=== PATIENT | male | born 1945 | race Caucasian/White ===

== ENCOUNTER 2017-03-25 12:21 | Inpatient (IN) | payer MEDICARE, BC ==
[2017-03-25] VITALS (7 sets, daily range): BP systolic 194–203; BP diastolic 70–87; PULSE 34–51; RESP 20–24; TEMP 98.1; O2SAT 99–100
[~2017-03-25] VITALS: Ht 180.3 cm; Wt 133.5 kg
[2017-03-25] MEDS ORDERED: SODIUM CHLORIDE 0.9% FLUSH 10 ML FLUSH IVF PRN (13:00)
[2017-03-25] MEDS ORDERED: ARTI99.0 EACH EYE (13:05)
[2017-03-25] MEDS ORDERED: NEUR300C PO (13:05)
[2017-03-25] MEDS ORDERED: HYDR25TA5 PO (13:05)
[2017-03-25] MEDS ORDERED: MOBI15TA PO (13:05)
[2017-03-25] MEDS ORDERED: POTA10CA PO (13:05)
[2017-03-25] MEDS ORDERED: ASPI1TAB91 PO (13:05)
[2017-03-25] MEDS ORDERED: ZOCO40TA PO (13:05)
[2017-03-25] MEDS ORDERED: METO5TAB3 PO (13:05)
[2017-03-25] MEDS ORDERED: SLO-500T PO (13:05)
[2017-03-25] MEDS ORDERED: FENO50TA PO (13:05)
[2017-03-25] MEDS ORDERED: MULT-210 PO (13:05)
[2017-03-25] MEDS ORDERED: LACROIN EACH EYE (13:05)
[2017-03-25] MEDS ORDERED: ACTO45TA8 PO (13:05)
[2017-03-25] MEDS ORDERED: ZOLO50TA PO (13:05)
[2017-03-25] MEDS ORDERED: LEVEMIR SQ (13:05)
[2017-03-25] MEDS ORDERED: NOVORP2 SQ (13:05)
[2017-03-25] MEDS ORDERED: NEUR600T PO (13:05)
--- NOTE | 2017-03-25 13:12 | PD ---
HPI Chief Complaint: Cardiac Complaint Time Seen by Provider: 12:33 Travel History International Travel<30 days: No Contact w/Intl Traveler<30days: No Traveled to known affect area: No History of Present Illness HPI This is a 71-year-old gentleman with a history of urinary disease, peripheral vascular disease, IVs mellitus, hyperlipidemia, CHF, presents from the [facility] with altered mental status. Patient was apparently in the [facility] shop at [facility] when he became altered. When paramedics arrived they found his heart rate to be in the low 30s. The patient is a DNR. Paramedics called for medic control and asked if they should initiate pacing. This physician gave him orders to not place and to transport him here to the hospital. When he arrives here he is arousable and able to answer questions. The patient is also legally blind. He states he is in no discomfort. His blood pressure is elevated. I immediately placed a consult with the palliative care team. A conundrum here is that with him being a DNR, should we pacing him or should we place a pacemaker. PFSH Past Medical History Hx Anticoagulant Therapy: Yes Depression: Yes Cardiovascular Problems: Yes (CAD, CHF, PVD) High Cholesterol: Yes Seizures: Yes Tetanus Vaccination: Unknown Social History Alcohol Use: No Tobacco Use: No Substance Use: No Allergies-Medications (Allergen,Severity, Reaction): Coded Allergies: No Known Allergies (Unverified , 03/25/17) Reported Meds & Prescriptions Reported Meds & Active Scripts Active Reported Zoloft (Sertraline HCl) 50 Mg Tab 50 Mg PO DAILY Tricor (Fenofibrate) 145 Mg Tab 145 Mg PO DAILY Take with food. Therapeutic M (Multivit with Calcium,Iron,Min) 1 Each Tablet 1 Tab PO DAILY Slo-Niacin (Niacin) 500 Mg Tab 500 Mg PO HS Zocor (Simvastatin) 40 Mg Tab 40 Mg PO HS Refresh Lacri-Lube Opth Ointment (Artificial Tear Opth Ointment) 1 Oint 1 Applic EACH EYE HS Potassium Chloride ER (Potassium Chloride) 10 Meq Cap 10 Meq PO DAILY Actos (Pioglitazone HCl) 45 Mg Tab 45 Mg PO DAILY Novolin R Inj (Insulin Human Regular) 1,000 Unit/10 Ml Vial 0 SQ TIDAC Sliding Scale: 70-150=0 units, 151-200=5 units, 201-250=10 units, 251-300=15 units, 301-350=20 units, 351-400=25 units, >400=call Novolin R Inj (Insulin Human Regular) 1,000 Unit/10 Ml Vial 6 Units SQ TIDAC Give in addition to sliding scale-Hold if accucheck less than 100 Natural Balance Tears Opth Drops (Artificial Tear Solution Opth Drops) 0.1-0.3% Soln 1 Drop EACH EYE BID Metolazone 5 Mg Tab 5 Mg PO MOTH Take 1 tablet (5mg) daily on Saturday and Mobic (Meloxicam) 15 Mg Tab 15 Mg PO DAILY Levemir Inj (Insulin Detemir) 1,000 unit/ 10 ML Vial 70 Units SQ BID Do not mix with any other Insulin. Hydrochlorothiazide 25 Mg Tab 25 Mg PO DAILY Neurontin (Gabapentin) 300 Mg Cap 300 Mg PO DAILY Neurontin (Gabapentin) 600 Mg Tab 600 Mg PO BID Aspirin Adult Low Strength (Aspirin) 81 Mg Tabdr 81 Mg PO DAILY Review of Systems Except as stated in HPI: all other systems reviewed are Neg Eyes: Positive: Blindness HENT: No: Headaches, Neck Pain Cardiovascular: No: Chest Pain or Discomfort, Irregular Rhythm Respiratory: No: Cough Gastrointestinal: No: Nausea, Vomiting, Abdominal Pain Musculoskeletal: Positive: Weakness, No: Pain Neurologic: Positive: Weakness, Syncope (or syncope), Other (decreased mentation), No: Dizziness, Headache, Change in Mentation Physical Exam Narrative GENERAL: Well-developed well nourished gentleman in no acute distress. SKIN: Focused skin assessment warm/dry. HEAD: Atraumatic. Normocephalic. EYES: Patient has bilateral opacified cataracts.. No scleral icterus. No injection or drainage. ENT: No nasal bleeding or discharge. Mucous membranes pink and moist. NECK: Trachea midline. No JVD. Supple. CARDIOVASCULAR: Bradycardic. No obvious murmur appreciated. It was in the 30s. RESPIRATORY: No accessory muscle use. Clear to auscultation. Breath sounds equal bilaterally. Decreased respiratory effort. GASTROINTESTINAL: Abdomen soft, obese, non-tender, nondistended. MUSCULOSKELETAL: No obvious deformities. No clubbing. No cyanosis. No edema. NEUROLOGICAL: Sleepy but arousable.. No obvious cranial nerve deficits. Motor grossly within normal limits. Able to answer questions and follow commands. Data Data Last Documented VS Vital Signs Date Time Temp Pulse Resp B/P (MAP) Pulse Ox O2 Delivery O2 Flow Rate FiO2 03/25/17 13:40 35 21 203/84 (123) 99 Nasal Cannula 3.00 03/25/17 12:34 98.1 Orders Orders Consult Palliative Care (03/25/17 ) (Hub Use Only)Inp Phy Cons/Ref (03/25/17 ) Basic Metabolic Panel (Bmp) (03/25/17 12:58) Ckmb (Isoenzyme) Profile (03/25/17 12:58) Complete Blood Count With Diff (03/25/17 12:58) Magnesium (Mg) (03/25/17 12:58) Prothrombin Time / Inr (Pt) (03/25/17 12:58) Act Partial Throm Time (Ptt) (03/25/17 12:58) Troponin I (03/25/17 12:58) Chest, Single Ap (03/25/17 12:58) Ecg Monitoring (03/25/17 12:58) Bilateral Bp Monitoring (03/25/17 12:58) Iv Access Insert/Monitor (03/25/17 12:58) Oximetry (03/25/17 12:58) Oxygen Administration (03/25/17 12:58) Sodium Chloride 0.9% Flush (Ns Flush) (03/25/17 13:00) Lipase (03/25/17 12:58) Ct Brain W/O Iv Contrast(Rout) (03/25/17 13:20) Arterial Blood Gas (Abg) (03/25/17 13:20) CKMB (03/25/17 13:04) CKMB% (03/25/17 13:04) Electrocardiogram (03/25/17 12:25) Code Status (03/25/17 14:33) Admit Order (Ed Use Only) (03/25/17 15:04) Labs Laboratory Tests Test 03/25/17 13:04 03/25/17 13:30 03/25/17 14:34 White Blood Count 4.4 TH/MM3 Red Blood Count 4.18 MIL/MM3 Hemoglobin 12.6 GM/DL Hematocrit 38.2 % Mean Corpuscular Volume 91.5 FL Mean Corpuscular Hemoglobin 30.1 PG Mean Corpuscular Hemoglobin Concent 32.9 % Red Cell Distribution Width 14.1 % Platelet Count 177 TH/MM3 Mean Platelet Volume 9.8 FL Neutrophils (%) (Auto) 58.4 % Lymphocytes (%) (Auto) 16.7 % Monocytes (%) (Auto) 22.1 % Eosinophils (%) (Auto) 2.4 % Basophils (%) (Auto) 0.4 % Neutrophils # (Auto) 2.6 TH/MM3 Lymphocytes # (Auto) 0.7 TH/MM3 Monocytes # (Auto) 1.0 TH/MM3 Eosinophils # (Auto) 0.1 TH/MM3 Basophils # (Auto) 0.0 TH/MM3 CBC Comment DIFF FINAL Differential Comment Blood Urea Nitrogen 24 MG/DL Creatinine 1.33 MG/DL Random Glucose 127 MG/DL Calcium Level 7.9 MG/DL Magnesium Level 2.2 MG/DL Sodium Level 131 MEQ/L Potassium Level 3.9 MEQ/L Chloride Level 98 MEQ/L Carbon Dioxide Level 23.7 MEQ/L Anion Gap 9 MEQ/L Estimat Glomerular Filtration Rate 53 ML/MIN Total Creatine Kinase 199 U/L Creatine Kinase MB 2.9 NG/ML Troponin I 0.13 NG/ML Lipase 69 U/L Blood Gas Puncture Site LT RADIAL Blood Gas Patient Temperature 98.6 Blood Gas HCO3 25 mmol/L Blood Gas Base Excess 1.0 mmol/L Blood Gas Oxygen Saturation 96 % Arterial Blood pH 7.43 Arterial Blood Partial Pressure CO2 39 mmHg Arterial Blood Partial Pressure O2 96 mmHG Arterial Blood Oxygen Content 16.6 Vol % Arterial Blood Carboxyhemoglobin 1.4 % Arterial Blood Methemoglobin 0.5 % Blood Gas Hemoglobin 12.2 G/DL Oxygen Delivery Device NASAL CANNULA Blood Gas Liter Flow 3 L/M [facility] Medical Decision Making Medical Screen Exam Complete: Yes Emergency Medical Condition: Yes Differential Diagnosis Third-degree heart block versus sick sinus syndrome versus acute CO versus metabolic arrangement Narrative Course 71-year-old male with history of legal blindness, diabetes medicine, hypertension, hyperlipidemia, peripheral rashes disease, who presents from the [facility] after having a episode of altered sensorium want to give shot. The patient had bradycardia noted on scene. Patient complains of no chest pain. He is lethargic however able to answer questions and follow commands. EKG shows what appears to be a second degree type II block versus sick sinus syndrome. Patient also has elevated troponin at 0.12. There is a call out to the on-call water project engineer. A consult has been placed for him as well. I spoke with the patient's power of family law attorney and she wishes for everything to be done at this time. The patient is having no chest pain. Patient does have renal sufficiency. Patient's blood pressure was elevated when he arrived. Case was discussed with Dr. Finney, on-call stuntman, who admit the patient to the intensive care unit. Critical Care Narrative Aggregate critical care time was 35 minutes. Time to perform other separately billable procedures was not included in the critical care time. My time did not include minutes spent treating any other patients simultaneously or on activities that did not directly contribute to the patient's treatment. The services I provided to this patient were to treat and/or prevent clinically significant deterioration that could result in: I provided critical care services requiring my management, as noted below: Chart data review, documentation time, medication orders and management, vital sign assessments/reviewing monitor data, ordering and reviewing lab tests, ordering and interpreting/reviewing x-rays and diagnostic studies, care of the patient and discussion of the patient with the admitting physicians. Diagnosis Primary Impression: Symptomatic bradycardia Additional Impressions: Heart block AV second degree Elevated troponin Acute kidney injury Hyperlipidemia Legally blind Admitting Information Admitting Physician Requests: Admit Neo Ching MD Mar 25, 2017 13:12
[2017-03-25 13:24] LABS: AUTOMATED NEUTROPHIL # 2.6 TH/MM3 (1.8-7.7); BASOPHIL % 0.4 % (0.0-2.0); EOSINOPHIL # 0.1 TH/MM3 (0-0.4); EOSINOPHIL % 2.4 % (0.0-4.0); HEMATOCRIT 38.2 % (39.0-51.0); HEMO FLAGS DIFF FINAL; LYMPH % 16.7 % (9.0-44.0); LYMPHOCYTE # 0.7 TH/MM3 (1.0-4.8); MEAN CELL VOLUME 91.5 FL (80.0-100.0); MEAN CORPUSCULAR HEMOGLOBIN 30.1 PG (27.0-34.0); MEAN CORPUSCULAR HGB CONC 32.9 % (32.0-36.0); MONO % 22.1 % (0.0-8.0); NEUT % 58.4 % (16.0-70.0); PLATELET COUNT 177 TH/MM3 (150-450); RED BLOOD COUNT 4.18 MIL/MM3 (4.50-5.90); RED CELL DISTRIBUTION WIDTH 14.1 % (11.6-17.2); WHITE BLOOD COUNT 4.4 TH/MM3 (4.0-11.0)
--- NOTE | 2017-03-25 13:25 | RADRPT ---
EXAM DATE/TIME: 03/25/2017 13:02 [facility] COMPARISON: No previous studies available for comparison. INDICATIONS : Patient has altered mental status with bradycardia. MEDICAL HISTORY : None. SURGICAL HISTORY : None. ENCOUNTER: Initial ACUITY: 1 day PAIN SCORE: Non-responsive. LOCATION: Bilateral upper chest FINDINGS: The lungs are clear. The heart is minimally enlarged. The pulmonary vascularity is normal. There is n o evidence for infiltrate or failure. The portion of the bony skeleton visualized is unremarkable. CONCLUSION: Compensated cardiomegaly otherwise negative Board Certified Radiologist. This report was verified electronically.
[2017-03-25 13:40] LABS: BLOOD GAS CARBOXYHEMOGLOBIN 1.4 % (0-4); BLOOD GAS HCO3 25 mmol/L (22-26); BLOOD GAS METHEMOGLOBIN 0.5 % (0-2); BLOOD GAS O2 HGB SATURATION 96 % (90-100); BLOOD GAS OXYGEN CONTENT 16.6 Vol % (12.0-20.0); BLOOD GAS PCO2 39 mmHg (38-42); BLOOD GAS PO2 96 mmHG (61-120); BLOOD GAS TOTAL HGB 12.2 G/DL (12.0-16.0); CRITICAL VALUE NO; DRAW SITE LT RADIAL; LITER FLOW 3 L/M; NUMBER OF ARTERIAL PUNCTURES 1; OXYGEN DEVICE NASAL CANNULA; STAT YES; TEMP CORR TO 98.6; ULNAR PULSE PRESENT
[2017-03-25 13:42] LABS: ANION GAP 9 MEQ/L (5-15); BICARBONATE 23.7 MEQ/L (21.0-32.0); BLOOD UREA NITROGEN 24 MG/DL (7-18); CHLORIDE 98 MEQ/L (98-107); GLOMERULAR FILTRATION RATE 53 ML/MIN (>89); MAGNESIUM 2.2 MG/DL (1.5-2.5); POTASSIUM 3.9 MEQ/L (3.5-5.1); SODIUM (NA) 131 MEQ/L (136-145)
[2017-03-25 13:45] LABS: CREATINE KINASE 199 U/L (39-308)
[2017-03-25 14:06] LABS: CKMB 2.9 NG/ML (0.5-3.6)
--- NOTE | 2017-03-25 14:53 | PD.CONS ---
Consult Service Palliative Care Consult Requested By Dr. Ching Primary Care Physician Unknown Reason for Consultation a. To assist with evaluation and management of symptoms including: lethargy b. To assist medical decision maker(s) with: better understanding of current medical conditions; weighing benefits/burdens of medical treatment options; making medical treatment decisions. HPI History of Present Illness Patient is a 71-year-old with past medical history significant for peripheral vascular disease, diabetes, hyperlipidemia, CHF. Patient presented to the group home with altered mental status, was apparently in the gift shop when he became altered. Paramedics found patient to be bradycardic. Patient has completed a sign DNR in 2008. Physician in the nursing facility gave orders to transfer patient to the hospital. Patient on arrival to the ER was arousable and answers some questions, but overall lethargic. Vitals: Temperature 98.1, pulse is 50 1/2/35, respirations 24, blood pressure is 194/70, pulse ox is 100% on 3 L WBC 4.4, hemoglobin is 12.6, hematocrit is 30.2, platelet is 177 Sodium is 131, potassium 3.9, chloride is 98, bicarbonate 23.7, BUNs 24, creatinine is 1.33 PT, INR PTT pending Chest x-ray shows compensated cardiomegaly otherwise negative EKG shows bradycardia. Palliative care was consulted to review goals of care, as patient is has a written DNR. ER physician subsequently was able to reach family member, patient's sister, and review current clinical condition with patient. She endorsed she wouldn't want a cardiology consultation, and evaluation for possible pacing. I went to evaluate patient, who is overall lethargic. On my visit patient fought he was still in the nursing facility. She does deny any pain or any other discomfort. Given lethargy where patient would sometime fall asleep was asking questions, goals of care cannot be reviewed with patient. I spoke with Shaila Hughes [phone] (cell) [phone] (work) sister, and she state she is the POA. Explain to her what palliative care is. She seem to have a good understanding of his situation and the dilemma of DNR and bradycardic. She endorse that her father went through a similar situation and really "all he needed a pace maker." She ask for cardiology consultation and evaluation for pacemaker. This was consistent with what she told the ER physician. Spoke more in detail of the DNR that the patient signed. She state she was not aware of it, and feel possibly he did not know what he was signing. However, she does endorse, intubation would be to aggressive in care for patient. Review risk of decompensation and in that event what should be done. She endorses this: == No intubation, but amenable to bipap. She would want cpr/ shock/ acls drugs. == She would like cardiology consultation. == goals of care short of intubation, but want bipap if decompensates respiratory mcelroy.. Function/Cognitive Trajectory Pt legally blind, per sister able to do some activities of daily living. She denies pt ever went in and out of the hospital. Review of Systems ROS Limitations: Clinical Condition Constitutional: COMPLAINS OF: Fatigue Eyes: COMPLAINS OF: Vision loss (> 15 years ago) Cardiovascular: COMPLAINS OF: Dyspnea on Exertion Psychiatric: COMPLAINS OF: Confusion Past Family Social History Coded Allergies: No Known Allergies (Unverified , 03/25/17) Past Medical History peripheral vascular disease, IVs mellitus, hyperlipidemia, CHF, blind (per sister from agent orange exposure) Past Surgical History unable to elicit Reported Medications Zoloft (Sertraline HCl) 50 Mg Tab 50 Mg PO DAILY Tricor (Fenofibrate) 145 Mg Tab 145 Mg PO DAILY Take with food. Therapeutic M (Multivit with Calcium,Iron,Min) 1 Each Tablet 1 Tab PO DAILY Slo-Niacin (Niacin) 500 Mg Tab 500 Mg PO HS Zocor (Simvastatin) 40 Mg Tab 40 Mg PO HS Refresh Lacri-Lube Opth Ointment (Artificial Tear Opth Ointment) 1 Oint 1 Applic EACH EYE HS Potassium Chloride ER (Potassium Chloride) 10 Meq Cap 10 Meq PO DAILY Actos (Pioglitazone HCl) 45 Mg Tab 45 Mg PO DAILY Novolin R Inj (Insulin Human Regular) 1,000 Unit/10 Ml Vial 0 SQ TIDAC Sliding Scale: 70-150=0 units, 151-200=5 units, 201-250=10 units, 251-300=15 units, 301-350=20 units, 351-400=25 units, >400=call Novolin R Inj (Insulin Human Regular) 1,000 Unit/10 Ml Vial 6 Units SQ TIDAC Give in addition to sliding scale-Hold if accucheck less than 100 Natural Balance Tears Opth Drops (Artificial Tear Solution Opth Drops) 0.1-0.3% Soln 1 Drop EACH EYE BID Metolazone 5 Mg Tab 5 Mg PO MOTH Take 1 tablet (5mg) daily on Saturday and Mobic (Meloxicam) 15 Mg Tab 15 Mg PO DAILY Levemir Inj (Insulin Detemir) 1,000 unit/ 10 ML Vial 70 Units SQ BID Do not mix with any other Insulin. Hydrochlorothiazide 25 Mg Tab 25 Mg PO DAILY Neurontin (Gabapentin) 300 Mg Cap 300 Mg PO DAILY Neurontin (Gabapentin) 600 Mg Tab 600 Mg PO BID Aspirin Adult Low Strength (Aspirin) 81 Mg Tabdr 81 Mg PO DAILY Current Medications Medications (Trade) Dose Ordered Sig/Jayla Route Start Time Stop Time Status Last Admin (NS Flush) 2 ml UNSCH PRN IVF 03/25/17 13:00 Family History Mother had Alzheimer's Father had abram cardia and stroke. Substance Use Tobacco:no Alcohol:unable to elicit Prescription med abuse:unable to elicit Illicits:unable to elicit Psychosocial History [place] Blind for many years >15, lives in nursing facility. Not , no children. Has a sister Shaila Hughes (POA) and a brother Juan. Pt's parents Spiritual/Cultural Factors unable to elicit. Durable Power of Supervisor Plastering: Completed, but not made available Family/friends goals: Review risk of decompensation and in that event what should be done. She endorses this: == No intubation, but amenable to bipap. She would want cpr/ shock/ acls drugs. == She would like cardiology consultation. == goals of care short of intubation, but want bipap if decompensates. Physical Exam Vital Signs Date Time Temp Pulse Resp B/P (MAP) Pulse Ox O2 Delivery O2 Flow Rate FiO2 03/25/17 13:40 35 21 203/84 (123) 99 Nasal Cannula 3.00 03/25/17 12:34 54 24 100 Room Air 3.00 03/25/17 12:34 98.1 37 20 196/87 (123) 100 Nasal Cannula 3.00 03/25/17 12:30 100 Nasal Cannula 3.00 03/25/17 12:30 24 100 Nasal Cannula 3.00 03/25/17 12:24 98.1 51 24 194/70 (111) 100 Exam CONSTITUTIONAL/GENERAL: This is an adequately nourished patient, in no apparent distress. TUBES/LINES/DRAINS: SKIN: No jaundice, rashes, or lesions. Ecchymoses on upper extremities. No wounds seen anteriorly. Skin temperature appropriate. Not diaphoretic. HEAD: Atraumatic. Normocephalic. EYES: Pupils equal and round and reactive. Extraocular motions intact. No scleral icterus. No injection or drainage. Fundi not examined. ENT: Hearing grossly normal. Nose without bleeding or purulent drainage. Throat without visible erythema, exudates, masses, or lesions. NECK: Trachea midline. Supple, nontender. No palpable thyroid enlargement or nodularity. CARDIOVASCULAR: Regular rate and rhythm without murmurs, gallops, or rubs. No JVD. Peripheral pulses symmetric. RESPIRATORY/CHEST: Symmetric, unlabored respirations. Clear to auscultation. Breath sounds equal bilaterally. No wheezes, rales, or rhonchi. GASTROINTESTINAL: Abdomen soft, non-tender, nondistended. No hepato-splenomegaly , or palpable masses. No guarding. Bowel sounds present. GENITOURINARY: Without palpable bladder distension. Chicas catheter in place. MUSCULOSKELETAL: Extremities without clubbing, cyanosis, or edema. No joint tenderness or effusion noted. No calf tenderness. No mottling or clubbing. LYMPHATICS: No palpable cervical or supraclavicular adenopathy. NEUROLOGICAL: Awake and alert. Motor and sensory grossly within normal limits. Follows commands. Cognitively sharp. Moves all extremities. PSYCHIATRIC: No obvious anxiety/depression. no apparent hallucinations or other psychotic thought process. Diagnostic Tests Laboratory Laboratory Tests Test 03/25/17 13:04 03/25/17 13:30 White Blood Count 4.4 TH/MM3 (4.0-11.0) Red Blood Count 4.18 MIL/MM3 (4.50-5.90) Hemoglobin 12.6 GM/DL (13.0-17.0) Hematocrit 38.2 % (39.0-51.0) Mean Corpuscular Volume 91.5 FL (80.0-100.0) Mean Corpuscular Hemoglobin 30.1 PG (27.0-34.0) Mean Corpuscular Hemoglobin Concent 32.9 % (32.0-36.0) Red Cell Distribution Width 14.1 % (11.6-17.2) Platelet Count 177 TH/MM3 (150-450) Mean Platelet Volume 9.8 FL (7.0-11.0) Neutrophils (%) (Auto) 58.4 % (16.0-70.0) Lymphocytes (%) (Auto) 16.7 % (9.0-44.0) Monocytes (%) (Auto) 22.1 % (0.0-8.0) Eosinophils (%) (Auto) 2.4 % (0.0-4.0) Basophils (%) (Auto) 0.4 % (0.0-2.0) Neutrophils # (Auto) 2.6 TH/MM3 (1.8-7.7) Lymphocytes # (Auto) 0.7 TH/MM3 (1.0-4.8) Monocytes # (Auto) 1.0 TH/MM3 (0-0.9) Eosinophils # (Auto) 0.1 TH/MM3 (0-0.4) Basophils # (Auto) 0.0 TH/MM3 (0-0.2) CBC Comment DIFF FINAL Differential Comment Blood Urea Nitrogen 24 MG/DL (7-18) Creatinine 1.33 MG/DL (0.60-1.30) Random Glucose 127 MG/DL (74-106) Calcium Level 7.9 MG/DL (8.5-10.1) Magnesium Level 2.2 MG/DL (1.5-2.5) Sodium Level 131 MEQ/L (136-145) Potassium Level 3.9 MEQ/L (3.5-5.1) Chloride Level 98 MEQ/L (98-107) Carbon Dioxide Level 23.7 MEQ/L (21.0-32.0) Anion Gap 9 MEQ/L (5-15) Estimat Glomerular Filtration Rate 53 ML/MIN (>89) Total Creatine Kinase 199 U/L (39-308) Creatine Kinase MB 2.9 NG/ML (0.5-3.6) Troponin I 0.13 NG/ML (0.02-0.05) Lipase 69 U/L (73-393) Blood Gas Puncture Site LT RADIAL Blood Gas Patient Temperature 98.6 Blood Gas HCO3 25 mmol/L (22-26) Blood Gas Base Excess 1.0 mmol/L (-2-2) Blood Gas Oxygen Saturation 96 % (90-100) Arterial Blood pH 7.43 (7.380-7.420) Arterial Blood Partial Pressure CO2 39 mmHg (38-42) Arterial Blood Partial Pressure O2 96 mmHG (61-120) Arterial Blood Oxygen Content 16.6 Vol % (12.0-20.0) Arterial Blood Carboxyhemoglobin 1.4 % (0-4) Arterial Blood Methemoglobin 0.5 % (0-2) Blood Gas Hemoglobin 12.2 G/DL (12.0-16.0) Oxygen Delivery Device NASAL CANNULA Blood Gas Liter Flow 3 L/M Result Diagram: 03/25/17 1304 03/25/17 1304 Imaging Last Impressions Chest X-Ray 03/25/17 1258 Signed Impressions: Service Date/Time: Saturday, March 25, 2017 13:02 - CONCLUSION: Compensated cardiomegaly otherwise negative Board Certified Radiologist. This report was verified electronically. Patient/Family Conference Present at Family Conference: Shaila Hughes Family Conference Time (mins): 36 Family Conference Location: Telephone Issues Discussed: * Palliative care role, purpose, approach * Additional medical, psychosocial, and spiritual history * Patients general health, functional status, and cognitive changes in the months leading up to the current hospitalization * Patient/family understanding of the current medical problems * Patient/family understanding of prognosis * Patients goals of care as best understood from advance directives and/or conversations and/or values * Current medical treatment options and benefits/burdens of those options * Likely scenarios comparing ongoing aggressive care with a transition to comfort measures only * Questions answered to the best of my ability * Palliative care contact information provided Assessment and Plan Disease Oriented Problem List: (1) Bradycardia (2) Lethargy (3) CHF (congestive heart failure) (4) Diabetes (5) Hyperlipidemia (6) PVD (peripheral vascular disease) Symptom Scale: (1) Lethargy 0-10 Scale: Unable to quantify Pertinent Non-Medical Issues Psychosocial: Spiritual: Legal: Ethical issues impacting care: Important Contacts Shaila Hughes [phone] (cell). and work [phone] ( sister, and reported POA) Prognosis 71 year old with bradycardia, pending further workup. Prognosis is guarded, and at risk of sudden decompensation, setback, and decline. Code Status: Alternative Code (no intubation. Yes to compression/shock/acls/ bipap) Plan == Capacity- confused, lethargic on my visit. Does not have capacity to make medical decisions. == decision maker. Pt not , no kids, parents . Per [place] statutes the closest relative, and also reported POA is Shaila Hughes (pt's sister) . == Goals. She feels father went through something similar, and wants cardiology consultation and continue aggressive measures short of endotracheal intubation. Spoke more in detail with Sister (POA)of the DNR patient signed. She state she was not aware of it he signed it, and feel possibly he did not know what he was signing. However, she does endorse, intubation would be to aggressive in care for patient. Review risk of decompensation and in that event what should be done. She endorses this: == No intubation, but amenable to bipap. She would want compressions/ shock/ acls drugs/ bipap == She would like cardiology consultation and aggressive care. == goals of care, aggressive short of intubation, but want bipap if decompensates. == pain- pt denies pain. == lethargy- bradycardic, likely cardiac in etiology. No new med rec. == Palliative Care will continue to follow. Thank you for the opportunity to participate in the care of Mr. Fragoso. Attestation To help prompt me to consider important information that might be impacting today's encounter and assessment, information from prior notes written by myself or my colleagues may have been "brought forward" into today's note. My signature on this note, however, is an attestation that I personally performed the exam, history, and/or decision-making noted today, and, unless otherwise indicated, the interactions with patient, family, and staff as well as the review of records all occurred today. I also attest that the listed assessment and stated plan reflect my best clinical judgment today based on the combination of historical information, prior notes, and today's exam/ interactions. When time spent is documented, it refers only to time spent today by the signer, or if indicated, combined time spent today by collaborating physician/nurse practitioner. Hugh Paulino MD Mar 25, 2017 14:53
--- NOTE | 2017-03-25 15:54 | HHI.HP ---
[facility] Service Critical Care Medicine Primary Care Physician Unknown Admission Diagnosis symptomatic bradycardia, elevated troponin, acute kidney injury, leg Diagnosis: (1) Heart block AV second degree Diagnosis: Principal (2) Diabetes mellitus Diagnosis: Principal (3) Elevated troponin Diagnosis: Principal (4) Legally blind Diagnosis: Principal (5) Acute kidney injury Diagnosis: Principal (6) Symptomatic bradycardia Diagnosis: Principal (7) Peripheral vascular disease Diagnosis: Principal (8) Hyponatremia Diagnosis: Secondary (9) Hyperlipidemia Diagnosis: Secondary (10) PVD (peripheral vascular disease) Diagnosis: Secondary (11) CHF (congestive heart failure) Diagnosis: Secondary (12) Lethargy Diagnosis: Principal Chief Complaint: Syncopal episode at intermediate. Travel History International Travel<30 Days: No Contact w/Intl Traveler <30 Da: No Traveled to Known Affected Are: No History of Present Illness This is a 71-year-old male. Date of admission 03/25/2017. Asked medical history includes legal blindness, diabetes with peripheral neuropathy, chronic kidney disease stage III A, coronary artery disease, congestive heart failure unknown etiology, peripheral vascular disease, dyslipidemia, osteoporosis, degenerative disc disease constipation elevated BMI greater than 40 and FARNSWORTH. Patient presents to [facility] emergency department today after being seen as nursing facility with low heart rate and confused. Patient was a DNR and initially patient was not transvenously paced due to hypertension/ well perfused. Patient received 0.5 mill grams atropine in route without improvement in heart rate. Workup included EKG which revealed high degree AV block type II Mobitz and higher. EKG revealed rates around 40. Right bundle-branch block. Left anterior fascicular block. LVH. Troponin was 0.13. Potassium 3.9. Magnesium 2.2. Normocytic anemia.. Patient was evaluated by Dr. Santos who did not recommend pacemaker this time. Patient would benefit the ICU for observation as his systolic blood pressures currently in the 180s to 200s and he is mentating appropriately at this time. He will evaluate for pacemaker heart block persists. Discussed with Shaila Hughes, healthcare proxy is amenable to pacemaker placement if indicated. Review of Systems Constitutional: COMPLAINS OF: Fatigue, Weight gain, DENIES: Fever, Weight loss Endocrine: DENIES: Polydipsia, Polyuria Eyes: COMPLAINS OF: Blurred vision, Vision loss, Double Vision Ears, nose, mouth, throat: DENIES: Tinnitus Respiratory: DENIES: Apneas, Cough, Snoring Cardiovascular: DENIES: Chest pain Gastrointestinal: COMPLAINS OF: Constipation, DENIES: Abdominal pain Genitourinary: COMPLAINS OF: Urinary frequency, Nocturia, DENIES: Hematuria, Dysuria Musculoskeletal: COMPLAINS OF: Joint pain, DENIES: Back pain, Neck pain Integumentary: DENIES: Rash Hematologic/lymphatic: DENIES: Bruising Immunologic/allergic: DENIES: Eczema Neurologic: DENIES: Abnormal gait, Headache Psychiatric: COMPLAINS OF: Confusion, DENIES: Anxiety, Depression Past Family Social History Allergies: Coded Allergies: No Known Allergies (Unverified , 03/25/17) Past Medical History Depression Diabetic neuropathy DDD Coronary artery disease Congestive heart failure unknown etiology Peripheral vascular disease Dyslipidemia Diabetes mellitus Osteoporosis Constipation Chronic kidney disease stage IIIa Past Surgical History None Reported Medications Zoloft (Sertraline HCl) 50 Mg Tab 50 Mg PO DAILY Tricor (Fenofibrate) 145 Mg Tab 145 Mg PO DAILY Take with food. Therapeutic M (Multivit with Calcium,Iron,Min) 1 Each Tablet 1 Tab PO DAILY Slo-Niacin (Niacin) 500 Mg Tab 500 Mg PO HS Zocor (Simvastatin) 40 Mg Tab 40 Mg PO HS Refresh Lacri-Lube Opth Ointment (Artificial Tear Opth Ointment) 1 Oint 1 Applic EACH EYE HS Potassium Chloride ER (Potassium Chloride) 10 Meq Cap 10 Meq PO DAILY Actos (Pioglitazone HCl) 45 Mg Tab 45 Mg PO DAILY Novolin R Inj (Insulin Human Regular) 1,000 Unit/10 Ml Vial 0 SQ TIDAC Sliding Scale: 70-150=0 units, 151-200=5 units, 201-250=10 units, 251-300=15 units, 301-350=20 units, 351-400=25 units, >400=call MD Novolin R Inj (Insulin Human Regular) 1,000 Unit/10 Ml Vial 6 Units SQ TIDAC Give in addition to sliding scale-Hold if accucheck less than 100 Natural Balance Tears Opth Drops (Artificial Tear Solution Opth Drops) 0.1-0.3% Soln 1 Drop EACH EYE BID Metolazone 5 Mg Tab 5 Mg PO MOTH Take 1 tablet (5mg) daily on Saturday and Mobic (Meloxicam) 15 Mg Tab 15 Mg PO DAILY Levemir Inj (Insulin Detemir) 1,000 unit/ 10 ML Vial 70 Units SQ BID Do not mix with any other Insulin. Hydrochlorothiazide 25 Mg Tab 25 Mg PO DAILY Neurontin (Gabapentin) 300 Mg Cap 300 Mg PO DAILY Neurontin (Gabapentin) 600 Mg Tab 600 Mg PO BID Aspirin Adult Low Strength (Aspirin) 81 Mg Tabdr 81 Mg PO DAILY Active Ordered Medications Reviewed in EMR Family History Father's history diabetes/CVA and complete heart block. Social History No history of tobacco, alcohol or IV drug use Physical Exam Vital Signs Vital Signs Date Time Temp Pulse Resp B/P (MAP) Pulse Ox O2 Delivery O2 Flow Rate FiO2 03/25/17 13:40 35 21 203/84 (123) 99 Nasal Cannula 3.00 03/25/17 12:34 54 24 100 Room Air 3.00 03/25/17 12:34 98.1 37 20 196/87 (123) 100 Nasal Cannula 3.00 03/25/17 12:30 100 Nasal Cannula 3.00 03/25/17 12:30 24 100 Nasal Cannula 3.00 03/25/17 12:24 98.1 51 24 194/70 (111) 100 Physical Exam GENERAL: 71-year-old male, resting in bed in no acute distress SKIN: Warm and dry. Well perfused. No rash. HEAD: Atraumatic. Normocephalic. EYES: Pupils equal and round about 3 Negrete's bilaterally and minimally reactive. No scleral icterus. No injection or drainage. ENT: No nasal bleeding or discharge. Mucous membranes pink and moist. NECK: Trachea midline. No JVD. CARDIOVASCULAR: Bradycardia, IR. S1, S2. No S4. Without murmur. RESPIRATORY: Clear to auscultation. Breath sounds equal bilaterally. GASTROINTESTINAL: Abdomen soft, non-tender, obese. Hypoactive bowel sounds are appreciated. Hepatic and splenic margins not palpable. MUSCULOSKELETAL: Extremities trace to 1+ peripheral nonpitting edema. No obvious deformities. NEUROLOGICAL: Awake and alert to person only currently.. No obvious cranial nerve deficits. Motor grossly within normal limits. Five out of 5 muscle strength in the arms and legs. Normal speech. Laboratory Laboratory Tests Test 03/25/17 13:04 03/25/17 13:30 03/25/17 15:25 White Blood Count 4.4 Red Blood Count 4.18 Hemoglobin 12.6 Hematocrit 38.2 Mean Corpuscular Volume 91.5 Mean Corpuscular Hemoglobin 30.1 Mean Corpuscular Hemoglobin Concent 32.9 Red Cell Distribution Width 14.1 Platelet Count 177 Mean Platelet Volume 9.8 Neutrophils (%) (Auto) 58.4 Lymphocytes (%) (Auto) 16.7 Monocytes (%) (Auto) 22.1 Eosinophils (%) (Auto) 2.4 Basophils (%) (Auto) 0.4 Neutrophils # (Auto) 2.6 Lymphocytes # (Auto) 0.7 Monocytes # (Auto) 1.0 Eosinophils # (Auto) 0.1 Basophils # (Auto) 0.0 CBC Comment DIFF FINAL Differential Comment Blood Urea Nitrogen 24 Creatinine 1.33 Random Glucose 127 Calcium Level 7.9 Magnesium Level 2.2 Sodium Level 131 Potassium Level 3.9 Chloride Level 98 Carbon Dioxide Level 23.7 Anion Gap 9 Estimat Glomerular Filtration Rate 53 Total Creatine Kinase 199 Creatine Kinase MB 2.9 Troponin I 0.13 Lipase 69 Blood Gas Puncture Site LT RADIAL Blood Gas Patient Temperature 98.6 Blood Gas HCO3 25 Blood Gas Base Excess 1.0 Blood Gas Oxygen Saturation 96 Arterial Blood pH 7.43 Arterial Blood Partial Pressure CO2 39 Arterial Blood Partial Pressure O2 96 Arterial Blood Oxygen Content 16.6 Arterial Blood Carboxyhemoglobin 1.4 Arterial Blood Methemoglobin 0.5 Blood Gas Hemoglobin 12.2 Oxygen Delivery Device NASAL CANNULA Blood Gas Liter Flow 3 Result Diagram: 03/25/17 1304 03/25/17 1304 Imaging Last Impressions Chest X-Ray 03/25/17 1258 Signed Impressions: Service Date/Time: Saturday, March 25, 2017 13:02 - CONCLUSION: Compensated cardiomegaly otherwise negative Board Certified Radiologist. This report was verified electronically. MD Christine VTE Risk Assessment Emmett VTE Risk Assessment: No/Low Risk (score <= 1) VTE Pharm Contraindication: Juliorini Risk Assessment Model Point Value = 1 Point Value = 2 Point Value = 3 Point Value = 5 Age 41-60 Minor surgery BMI > 25 kg/m2 Swollen legs Varicose veins or History of unexplained or recurrent spontaneous Oral contraceptives or hormone replacement Sepsis (< 1 month) Serious lung disease, including pneumonia (< 1 month) Abnormal pulmonary function Acute myocardial infarction Congestive heart failure (< 1 month) History of inflammatory bowel disease Medical patient at bed rest Age 61-74 Arthroscopic surgery Major open surgery (> 45 min) Laparoscopic surgery (> 45 min) Malignancy Confined to bed (> 72 hours) Immobilizing plaster cast Central venous access Age >= 75 History of VTE Family history of VTE Factor V Leiden Prothrombin [id number] Lupus anticoagulant Anticardiolipin antibodies Elevated serum homocysteine Heparin-induced thrombocytopenia Other congenital or acquired thrombophilia Stroke (< 1 month) Elective arthroplasty Hip, pelvis, or leg fracture Acute spinal cord injury (< 1 month) Prophylaxis Regimen Total Risk Factor Score Risk Level Prophylaxis Regimen 0-1 Low Early ambulation 2 Moderate Order ONE of the following: *Sequential Compression Device (SCD) *Heparin 5000 units SQ BID 3-4 Higher Order ONE of the following medications: *Heparin 5000 units SQ TID *Enoxaparin/Lovenox 40 mg SQ daily (WT < 150 kg, CrCl > 30 mL/min) *Enoxaparin/Lovenox 30 mg SQ daily (WT < 150 kg, CrCl > 10-29 mL/min) *Enoxaparin/Lovenox 30 mg SQ BID (WT < 150 kg, CrCl > 30 mL/min) AND/OR *Sequential Compression Device (SCD) 5 or more Highest Order ONE of the following medications: *Heparin 5000 units SQ TID (Preferred with Epidurals) *Enoxaparin/Lovenox 40 mg SQ daily (WT < 150 kg, CrCl > 30 mL/min) *Enoxaparin/Lovenox 30 mg SQ daily (WT < 150 kg, CrCl > 10-29 mL/min) *Enoxaparin/Lovenox 30 mg SQ BID (WT < 150 kg, CrCl > 30 mL/min) AND *Sequential Compression Device (SCD) Assessment and Plan Assessment and Plan Neuro/Psych: Depression NOS Diabetic neuropathy Acetaminophen 650 mg by mouth every 4 hours when necessary fever/pain 1-5 Hydrocodone/acetaminophen 5/325 one tablet every 4 hours. Pain 6-10 Holding gabapentin 60 mg by mouth twice a day and 3 mg at night in light of heart block Holding sertraline 50 mg by mouth daily. Resume when clinically indicated CT brain currently pending CV: Elevated troponin Congestive heart failure NOS Coronary artery disease Dyslipidemia Peripheral vascular disease Evaluated by Dr. Santos cardiology in ED. Likely high degree AV block. Second -degree type 2-1 versus higher. Heart rate currently in the 30s. Systolic blood pressure around 200. No indication for pacemaker at this time. Monitoring in intensive care unit. Temporary transvenous pacer pads placed on patient temporarily As needed hydralazine/Nitropaste for hypertension Continue simvastatin 40 mg by mouth daily for dyslipidemia Continue fenofibrate 145 mg daily and niacin 500 mg daily for dyslipidemia Holding hydrochlorothiazide 25 mg daily and metolazone 5 mg Saturday/. Resume when clinically indicated Continue aspirin 81 mg by mouth daily. 2-D echocardiogram ordered. Cycle troponins. Resp: Nasal cannula to maintain saturations greater than equal to 92% Incentive spirometry while awake Chest x-ray revealed cardiomegaly without signs of overt heart failure. GI: Constipation ADA diet. Nothing by mouth tonight Pantoprazole for GI prophylaxis Maria G-Colace for bowel regimen : FARNSWORTH by history Chicas catheter if indicated for accurate I's and O's in a critically ill patient Endo: Diabetes mellitus Currently on insulin detemir 10 units subcutaneous twice a day and sliding scale insulin/high regimen with before meals/at bedtime 0300 Accu-Cheks Hemoglobin A1c 7.2 2015 Patient is on insulin detemir 70 units subcutaneous [facility] a [facility] Novulin R 6 units 3 times a day with sliding scale with meals along with pioglitazone 45 mg by mouth daily for diabetes Renal: Chronic kidney disease stage IIIa GFR around 50. Monitor urine output Accurate I's and O's Heme: Normocytic anemia Monitor CBC daily. Follow trends. No indication for transfusion of blood products at this time. ID: Monitor for infection. FEN: Hyponatremia Replace electrolyte as clinically indicated. Follow-up sodium in AM. MSK: DDD Osteoporosis BMI greater than 40 Holding meloxicam 15 mill grams by mouth daily for osteoarthritis Physical therapy evaluate and treat Weight loss encouraged Access - Utilize peripheral IV. Central line if indicated Prophylaxis - GI - pantoprazole - DVT - SCD/enoxaparin Critical Care: The total critical care time was 35 minutes. Time to perform other separately billable procedures was not included in the critical care time. Code Status Alternate code no intubation Discussed Condition With Shaila Hughes [id number], Dr. Santos cardiology and Dr. Ching in ED. Care plan discussed all questions answered Problem Qualifiers (1) Diabetes mellitus: (2) CHF (congestive heart failure): Qualified Codes: I50.9 - Heart failure, unspecified Segundo Finney MD Mar 25, 2017 15:54
[2017-03-25 15:55] LABS: APTT (PATIENT) 26.9 SEC (24.3-30.1); PROTHROMBIN TIME - PATIENT 10.9 SEC (9.8-11.6)
[2017-03-25] MEDS ORDERED: LACTULOSE SYRUP 20 GM/30 ML CUP PO PRN (16:00)
[2017-03-25] MEDS ORDERED: ONDANSETRON HCL 4 MG/2 ML VIAL IV PRN (16:00)
[2017-03-25] MEDS: INSULIN NovoLIN REGULAR SUPPLEMENTAL SCALE SQ SCH ×2 (16:00→21:00)
[2017-03-25] MEDS ORDERED: GLUCAGON 1 MG/ML VIAL OTHER PRN (16:00)
[2017-03-25] MEDS ORDERED: ACETAMINOPHEN 325 MG TAB PO PRN (16:00)
[2017-03-25] MEDS ORDERED: MAGNESIUM HYDROXIDE SUSP 30 ML CUP PO PRN (16:00)
[2017-03-25] MEDS ORDERED: SODIUM CHLORIDE 0.9% FLUSH 10 ML FLUSH IV FLUSH PRN (16:00)
[2017-03-25] MEDS ORDERED: MISCELLANEOUS NURSING INFORMATION XX SCH (16:00)
[2017-03-25] MEDS ORDERED: DEXTROSE 50% IN WATER 50 ML VIAL(D50) IV PRN (16:00)
[2017-03-25] MEDS ORDERED: BISACODYL 10 MG SUPP RECTAL PRN (16:00)
[2017-03-25] MEDS ORDERED: SENNOSIDES 8.6 MG TAB PO PRN (16:00)
[2017-03-25] MEDS ORDERED: CHLORHEXIDINE GLUCONATE 2 % 1 PACK (2 CLOTHS) TOP PRN (16:00)
--- NOTE | 2017-03-25 16:00 | RADRPT ---
EXAM DATE/TIME: 03/25/2017 15:38 [place] COMPARISON: No previous studies available for comparison. INDICATIONS : Altered mental status. RADIATION DOSE: 39.53 CTDIvol (mGy) MEDICAL HISTORY : Cardiovascular disease. Seizures. SURGICAL HISTORY : None. ENCOUNTER: Initial ACUITY: 1 day PAIN SCALE: 4/10 LOCATION: cranial TECHNIQUE: Multiple contiguous axial images were obtained of the head. Using automated exposure control and adj ustment of the mA and/or kV according to patient size, radiation dose was kept as low as reasonably a chievable to obtain optimal diagnostic quality images. DICOM format image data is available electro nically for review and comparison. FINDINGS: CEREBRUM: The ventricles are normal for age. No evidence of midline shift, mass lesion, hemorrhage or acute in farction. No extra-axial fluid collections are seen. POSTERIOR FOSSA: The cerebellum and brainstem are intact. The 4th ventricle is midline. The cerebellopontine angle i s unremarkable. EXTRACRANIAL: The visualized portion of the orbits is intact. SKULL: The calvaria is intact. No evidence of skull fracture. CONCLUSION: Negative for acute process. Donald Ramirez MD FACR on March 25, 2017 at 15:58 Board Certified Radiologist. This report was verified electronically.
[2017-03-25] MEDS ORDERED: ENOXAPARIN SODIUM 40 MG/0.4 ML SYRINGE SQ SCH (18:00)
[2017-03-25] MEDS: SODIUM CHLOR 0.9% 1000 ML INJ 1,000 ML IV SCH (18:12)
[2017-03-25] MEDS: NIACIN 500 MG EXTENDED RELEASE TAB PO SCH (21:00)
[2017-03-25] MEDS: INSULIN DETEMIR 100 UNITS/ML VIAL SQ SCH (21:00)
[2017-03-25] MEDS: SODIUM CHLORIDE 0.9% FLUSH 10 ML FLUSH IV FLUSH SCH (21:00)
[2017-03-25] MEDS: ARTIFICIAL TEARS OPTH OINT 3.5 APPLIC/3.5 GM TUBO EACH EYE SCH (21:00)
[2017-03-25] MEDS: DOCUSATE SODIUM 50 MG/SENNA 8.6 MG TAB PO SCH (21:30)
[2017-03-25] MEDS: PRAVASTATIN SOD 80 MG TAB PO SCH (21:30)
[2017-03-25] MEDS: hydrALAZINE HCL 20 MG/ML VIAL IV PUSH PRN (23:21)
[2017-03-25] MEDS: RESP: ALBUTEROL 2.5 MG/3 ML NEB (PRN) INH (23:31)
[2017-03-26] VITALS (15 sets, daily range): BP systolic 189–193; BP diastolic 80–91; PULSE 33–49; RESP 20–33; TEMP 98–98.7; O2SAT 96–100
[2017-03-26] MEDS: niCARdipine INJ 25 MG in SODIUM CHLOR 0.9% 250 ML INJ 250 ML IV PRN ×2 (00:44→06:39)
[2017-03-26 03:50] LABS: AUTOMATED NEUTROPHIL # 4.9 TH/MM3 (1.8-7.7); BASOPHIL # 0.1 TH/MM3 (0-0.2); EOSINOPHIL # 0.1 TH/MM3 (0-0.4); EOSINOPHIL % 1.3 % (0.0-4.0); HEMATOCRIT 36.9 % (39.0-51.0); HEMO FLAGS DIFF FINAL; LYMPH % 11.3 % (9.0-44.0); LYMPHOCYTE # 0.8 TH/MM3 (1.0-4.8); MEAN CELL VOLUME 89.3 FL (80.0-100.0); MEAN CORPUSCULAR HEMOGLOBIN 31.3 PG (27.0-34.0); MONO % 13.2 % (0.0-8.0); NEUT % 73.2 % (16.0-70.0); PLATELET COUNT 168 TH/MM3 (150-450); RED BLOOD COUNT 4.14 MIL/MM3 (4.50-5.90); RED CELL DISTRIBUTION WIDTH 13.9 % (11.6-17.2); WHITE BLOOD COUNT 6.7 TH/MM3 (4.0-11.0)
[2017-03-26 03:59] LABS: ALT (GPT) 35 U/L (12-78); ANION GAP 7 MEQ/L (5-15); AST (GOT) 26 U/L (15-37); BICARBONATE 27.6 MEQ/L (21.0-32.0); BLOOD UREA NITROGEN 20 MG/DL (7-18); CHLORIDE 100 MEQ/L (98-107); GLOMERULAR FILTRATION RATE 63 ML/MIN (>89); MAGNESIUM 2.3 MG/DL (1.5-2.5); POTASSIUM 3.5 MEQ/L (3.5-5.1); SODIUM (NA) 135 MEQ/L (136-145)
[2017-03-26 04:00] LABS: APTT (PATIENT) 26.2 SEC (24.3-30.1)
[2017-03-26] MEDS: CHLORHEXIDINE GLUCONATE 2 % 1 PACK (2 CLOTHS) TOP SCH (04:00)
[2017-03-26 04:02] LABS: ALKALINE PHOSPHATASE 48 U/L (45-117); CREATINE KINASE 174 U/L (39-308); TOTAL BILIRUBIN ADULT 0.4 MG/DL (0.2-1.0)
[2017-03-26] MEDS: SODIUM CHLOR 0.9% 1000 ML INJ 1,000 ML IV SCH ×2 (04:45→15:36)
[2017-03-26] MEDS: INSULIN NovoLIN REGULAR SUPPLEMENTAL SCALE SQ SCH ×4 (07:00→21:00)
--- NOTE | 2017-03-26 07:33 | MB ---
cc: JOSEPHINE CARPENTER DATE OF CONSULTATION 03/25/2017 REASON FOR CONSULTATION This is a 71-year-old white male who suffered a syncopal episode at his [facility]. He has a history of legal blindness, diabetes mellitus, chronic kidney disease, coronary artery disease, congestive heart failure, and obesity. He has been also confused and was found to be bradycardic. He was DNR. He was found to have a high degree AV block, right bundle-branch block and left anterior fascicular block. He denies any chest pain or shortness of breath at this time. He is undergoing a CT of his head. PAST MEDICAL HISTORY Positive for: 1. Depression 2. Diabetic neuropathy 3. Coronary artery disease 4. Congestive heart failure 5. Peripheral vascular disease 6. Dyslipidemia 7. Diabetes mellitus 8. Osteoporosis 9. Chronic kidney disease stage III 10. Constipation MEDICATIONS At home include: 1. Zoloft 2. Tricor 3. Multivitamin 4. Slow niacin 5. Zocor 6. Lacri-Lube ophthalmic ointment 7. Potassium 8. Niacin 9. Insulin 10. Metolazone 11. Mobic 12. Levemir 13. Hydrochlorothiazide 14. Neurontin 15. Baby aspirin ALLERGIES None. SOCIAL HISTORY The patient does not smoke. He does not drink alcohol. FAMILY HISTORY Positive for stroke and heart block in his father. REVIEW OF SYSTEMS Otherwise negative. PHYSICAL EXAMINATION VITAL SIGNS: Blood pressure 203/84, pulse 35 and regular. HEENT: Negative. NECK: 2+ carotid upstrokes. No bruits. LUNGS: Clear. HEART: Regular bradycardic with no murmur or gallop. ABDOMEN: Soft. No bruits. EXTREMITIES: With edema 1+. 2+ pulses. NEUROLOGIC: Nonfocal. EKG was reviewed and showed second-degree AV block, 2:1 AV block, high degree AV block, left axis, left fascicular block and right bundle-branch block. LABS Hemoglobin 12.6, potassium 3.9, creatinine 1.3. Magnesium 2.2, CK 199, troponin 0.13. DIAGNOSIS 1. High degree AV block with severe symptomatic bradycardia. 2. Left anterior fascicular block and right bundle-branch block. 3. Diabetes mellitus 4. Renal insufficiency 5. Peripheral vascular disease 6. Dyslipidemia 7. Congestive heart failure 8. Chronic kidney disease DISPOSITION Mr. Fragoso will be monitored in the ICU. His EKG is suggestive of significant conduction system disease. He will be monitored on telemetry. He will be closely monitored on telemetry. We will obtain echocardiogram to evaluate his left ventricular function. If necessary, we will proceed with the placement of a permanent pacemaker. MD KIMBERLY Motley/OMAIRA /7:40 PM /7:15 AM MTDDeven
[2017-03-26] MEDS: POTASSIUM CHLORIDE 10 MEQ CAP PO SCH (09:00)
[2017-03-26] MEDS: PANTOPRAZOLE SODIUM 40 MG VIAL IV SCH (09:00)
[2017-03-26] MEDS: MULTIVITAMINS/MINERALS THERAPEUTIC TAB PO SCH (09:00)
[2017-03-26] MEDS: FENOFIBRATE 145 MG TAB PO SCH (09:00)
[2017-03-26] MEDS: DOCUSATE SODIUM 50 MG/SENNA 8.6 MG TAB PO SCH ×2 (09:00→21:18)
[2017-03-26] MEDS: ARTIFICIAL TEARS OPTH SOLN 15 ML BTL EACH EYE SCH ×3 (09:00→18:00)
[2017-03-26] MEDS: ASPIRIN EC 81 MG TABEC PO SCH (09:00)
[2017-03-26] MEDS: SODIUM CHLORIDE 0.9% FLUSH 10 ML FLUSH IV FLUSH SCH ×2 (09:00→21:17)
[2017-03-26] MEDS: INSULIN DETEMIR 100 UNITS/ML VIAL SQ SCH (09:00)
[2017-03-26] MEDS: hydrALAZINE HCL 20 MG/ML VIAL IV PUSH PRN ×2 (09:29→17:48)
[2017-03-26] MEDS: NITROGLYCERIN 2% OINT 1 GM PACKET TOPICAL PRN ×2 (09:30→17:48)
--- NOTE | 2017-03-26 10:16 | HHI.HCPN ---
Reason for visit a. To assist with evaluation and management of symptoms including: lethargy b. To assist medical decision maker(s) with: better understanding of current medical conditions; weighing benefits/burdens of medical treatment options; making medical treatment decisions. Subjective/Interval History Pt on my visit is more interactive on my visit. He is still confused and thinks he is in CT. He is able to answer questions. Reviewed his clinical condition with him, although I am not sure how much he comprehends. He is able to say that his HR is low. He is amenable for the medical team to continue to contact POA (sister) Family/friend interactions Spoke with sister (Shaila Hughes), endorse cardiology came to evaluate and will place pacemaker if appropriate. It appears to be the case, but I said that is to defer to cardiology. I spoke with her, and she endorse she would like pacemaker pace. Ask for cardiology to touch base with her if they can. Code status remains the same. Advance Directives Durable Power of Histology Assistant: Completed, but not made available Objective Vital Signs Date Time Temp Pulse Resp B/P (MAP) Pulse Ox O2 Delivery O2 Flow Rate FiO2 03/26/17 08:56 96 Nasal Cannula 2.00 03/26/17 06:39 35 181/77 03/26/17 06:00 33 03/26/17 04:00 49 03/26/17 02:00 33 03/26/17 00:55 100 Nasal Cannula 4.00 03/26/17 00:44 36 227/92 03/26/17 00:00 39 03/25/17 22:00 34 03/25/17 20:00 45 03/25/17 18:09 03/25/17 16:15 100 Nasal Cannula 3.00 03/25/17 13:40 35 21 203/84 (123) 99 Nasal Cannula 3.00 03/25/17 12:34 54 24 100 Room Air 3.00 03/25/17 12:34 98.1 37 20 196/87 (123) 100 Nasal Cannula 3.00 03/25/17 12:30 100 Nasal Cannula 3.00 03/25/17 12:30 24 100 Nasal Cannula 3.00 03/25/17 12:24 98.1 51 24 194/70 (111) 100 Intake & Output 03/26/17 03/26/17 07:00 19:00 Intake Total 2736 ml Output Total 0 ml Balance 2736 ml Intake Oral 480 ml IV Total 2256 ml Output Stool Total 0 ml # Voids 10 Physical Exam CONSTITUTIONAL/GENERAL: This is an adequately nourished patient, in no apparent distress, more alert SKIN: No jaundice, rashes, or lesions. Ecchymoses on upper extremities. No wounds seen anteriorly. Skin temperature appropriate. Not diaphoretic. HEAD: Atraumatic. Normocephalic. EYES: eyes closed blind. Keeps eyes closed, did not force open. ENT: Hearing grossly normal. Nose without bleeding or purulent drainage. Throat without visible erythema, exudates, masses, or lesions. NECK: Trachea midline. Supple, nontender. No palpable thyroid enlargement or nodularity. CARDIOVASCULAR: Bradycardic. No JVD. Peripheral pulses symmetric. RESPIRATORY/CHEST: Symmetric, unlabored respirations. Clear to auscultation. GASTROINTESTINAL: Abdomen soft, non-tender, nondistended. No hepato-splenomegaly , or palpable masses. GENITOURINARY: Without palpable bladder distension. Chicas catheter in place. MUSCULOSKELETAL: Lower ext edema. LYMPHATICS: No palpable cervical or supraclavicular adenopathy. NEUROLOGICAL: more alert today. still somewhat confused. Moves all ext. PSYCHIATRIC: No obvious anxiety/depression. some confusion. Diagnostic Tests Laboratory Laboratory Tests Test 03/25/17 13:04 03/25/17 13:30 03/25/17 15:25 03/25/17 18:20 White Blood Count 4.4 TH/MM3 (4.0-11.0) Red Blood Count 4.18 MIL/MM3 (4.50-5.90) Hemoglobin 12.6 GM/DL (13.0-17.0) Hematocrit 38.2 % (39.0-51.0) Mean Corpuscular Volume 91.5 FL (80.0-100.0) Mean Corpuscular Hemoglobin 30.1 PG (27.0-34.0) Mean Corpuscular Hemoglobin Concent 32.9 % (32.0-36.0) Red Cell Distribution Width 14.1 % (11.6-17.2) Platelet Count 177 TH/MM3 (150-450) Mean Platelet Volume 9.8 FL (7.0-11.0) Neutrophils (%) (Auto) 58.4 % (16.0-70.0) Lymphocytes (%) (Auto) 16.7 % (9.0-44.0) Monocytes (%) (Auto) 22.1 % (0.0-8.0) Eosinophils (%) (Auto) 2.4 % (0.0-4.0) Basophils (%) (Auto) 0.4 % (0.0-2.0) Neutrophils # (Auto) 2.6 TH/MM3 (1.8-7.7) Lymphocytes # (Auto) 0.7 TH/MM3 (1.0-4.8) Monocytes # (Auto) 1.0 TH/MM3 (0-0.9) Eosinophils # (Auto) 0.1 TH/MM3 (0-0.4) Basophils # (Auto) 0.0 TH/MM3 (0-0.2) CBC Comment DIFF FINAL Differential Comment Blood Urea Nitrogen 24 MG/DL (7-18) Creatinine 1.33 MG/DL (0.60-1.30) Random Glucose 127 MG/DL (74-106) Calcium Level 7.9 MG/DL (8.5-10.1) Magnesium Level 2.2 MG/DL (1.5-2.5) Sodium Level 131 MEQ/L (136-145) Potassium Level 3.9 MEQ/L (3.5-5.1) Chloride Level 98 MEQ/L (98-107) Carbon Dioxide Level 23.7 MEQ/L (21.0-32.0) Anion Gap 9 MEQ/L (5-15) Estimat Glomerular Filtration Rate 53 ML/MIN (>89) Total Creatine Kinase 199 U/L (39-308) Creatine Kinase MB 2.9 NG/ML (0.5-3.6) Troponin I 0.13 NG/ML (0.02-0.05) Lipase 69 U/L (73-393) Blood Gas Puncture Site LT RADIAL Blood Gas Patient Temperature 98.6 Blood Gas HCO3 25 mmol/L (22-26) Blood Gas Base Excess 1.0 mmol/L (-2-2) Blood Gas Oxygen Saturation 96 % (90-100) Arterial Blood pH 7.43 (7.380-7.420) Arterial Blood Partial Pressure CO2 39 mmHg (38-42) Arterial Blood Partial Pressure O2 96 mmHG (61-120) Arterial Blood Oxygen Content 16.6 Vol % (12.0-20.0) Arterial Blood Carboxyhemoglobin 1.4 % (0-4) Arterial Blood Methemoglobin 0.5 % (0-2) Blood Gas Hemoglobin 12.2 G/DL (12.0-16.0) Oxygen Delivery Device NASAL CANNULA Blood Gas Liter Flow 3 L/M Prothrombin Time 10.9 SEC (9.8-11.6) Prothromb Time International Ratio 1.0 RATIO Activated Partial Thromboplast Time 26.9 SEC (24.3-30.1) Nasal Screen MRSA (PCR) MRSA NOT DETECTED (NOT Test 03/25/17 21:07 03/26/17 03:30 Troponin I 0.13 NG/ML (0.02-0.05) 0.13 NG/ML (0.02-0.05) White Blood Count 6.7 TH/MM3 (4.0-11.0) Red Blood Count 4.14 MIL/MM3 (4.50-5.90) Hemoglobin 12.9 GM/DL (13.0-17.0) Hematocrit 36.9 % (39.0-51.0) Mean Corpuscular Volume 89.3 FL (80.0-100.0) Mean Corpuscular Hemoglobin 31.3 PG (27.0-34.0) Mean Corpuscular Hemoglobin Concent 35.0 % (32.0-36.0) Red Cell Distribution Width 13.9 % (11.6-17.2) Platelet Count 168 TH/MM3 (150-450) Mean Platelet Volume 10.3 FL (7.0-11.0) Neutrophils (%) (Auto) 73.2 % (16.0-70.0) Lymphocytes (%) (Auto) 11.3 % (9.0-44.0) Monocytes (%) (Auto) 13.2 % (0.0-8.0) Eosinophils (%) (Auto) 1.3 % (0.0-4.0) Basophils (%) (Auto) 1.0 % (0.0-2.0) Neutrophils # (Auto) 4.9 TH/MM3 (1.8-7.7) Lymphocytes # (Auto) 0.8 TH/MM3 (1.0-4.8) Monocytes # (Auto) 0.9 TH/MM3 (0-0.9) Eosinophils # (Auto) 0.1 TH/MM3 (0-0.4) Basophils # (Auto) 0.1 TH/MM3 (0-0.2) CBC Comment DIFF FINAL Differential Comment Prothrombin Time 11.0 SEC (9.8-11.6) Prothromb Time International Ratio 1.0 RATIO Activated Partial Thromboplast Time 26.2 SEC (24.3-30.1) Blood Urea Nitrogen 20 MG/DL (7-18) Creatinine 1.15 MG/DL (0.60-1.30) Random Glucose 114 MG/DL (74-106) Total Protein 6.7 GM/DL (6.4-8.2) Albumin 3.1 GM/DL (3.4-5.0) Calcium Level 8.4 MG/DL (8.5-10.1) Phosphorus Level 3.7 MG/DL (2.5-4.9) Magnesium Level 2.3 MG/DL (1.5-2.5) Alkaline Phosphatase 48 U/L (45-117) Aspartate Amino Transf (AST/SGOT) 26 U/L (15-37) Alanine Aminotransferase (ALT/SGPT) 35 U/L (12-78) Total Bilirubin 0.4 MG/DL (0.2-1.0) Sodium Level 135 MEQ/L (136-145) Potassium Level 3.5 MEQ/L (3.5-5.1) Chloride Level 100 MEQ/L (98-107) Carbon Dioxide Level 27.6 MEQ/L (21.0-32.0) Anion Gap 7 MEQ/L (5-15) Estimat Glomerular Filtration Rate 63 ML/MIN (>89) Lactic Acid Level 1.0 mmol/L (0.4-2.0) Total Creatine Kinase 174 U/L (39-308) Result Diagram: 03/26/1732903/26/17329 Assessment and Plan Disease Oriented Problem List: (1) Bradycardia (2) Lethargy (3) CHF (congestive heart failure) (4) Diabetes (5) Hyperlipidemia (6) PVD (peripheral vascular disease) Symptom Scale: (1) Lethargy 0-10 Scale: 8 Comment: improved Pertinent Non-Medical Issues Psychosocial: Spiritual: Legal: Ethical issues impacting care: Important Contacts Shalia Hughes [phone] (cell). and work [phone] ( sister, and POA) Prognosis 71 year old with bradycardia, pending further workup. Prognosis is guarded, and at risk of sudden decompensation, setback, and decline. Code Status: Alternative Code (no intubation. Yes to compression/shock/acls/ bipap) Plan == Capacity- confused, more alert. Joint medical decision with POA. == POA is Shaila Hughes == Goals. She feels father went through something similar, and wants cardiology consultation and continue aggressive measures short of endotracheal intubation. Spoke more in detail with Sister (MAGALIE)of the DNR patient signed. She state she was not aware of it he signed it, and feel possibly he did not know what he was signing. However, she does endorse, intubation would be to aggressive in care for patient. Review risk of decompensation and in that event what should be done. She endorses this: == No intubation, but amenable to bipap. She would want compressions/ shock/ acls drugs/ bipap == She would like pacemaker placed if appropriate. == goals of care, aggressive short of intubation, but want bipap if decompensates. would appreciate if cardiology can touch base with pt's sister Shaila [phone] == pain- pt denies pain. == lethargy- bradycardic, but more alert. == Palliative Care will continue to follow. Time Spent Total Floor Time (mins): 35 Attestation To help prompt me to consider important information that might be impacting today's encounter and assessment, information from prior notes written by myself or my colleagues may have been "brought forward" into today's note. My signature on this note, however, is an attestation that I personally performed the exam, history, and/or decision-making noted today, and, unless otherwise indicated, the interactions with patient, family, and staff as well as the review of records all occurred today. I also attest that the listed assessment and stated plan reflect my best clinical judgment today based on the combination of historical information, prior notes, and today's exam/ interactions. When time spent is documented, it refers only to time spent today by the signer, or if indicated, combined time spent today by collaborating physician/nurse practitioner. Hugh Paulino MD Mar 26, 2017 10:16
[2017-03-26] MEDS ORDERED: CLEVIDIPINE INJ 50 ML IV PRN (10:22)
[2017-03-26] MEDS ORDERED: POTASSIUM CHLORIDE 10 MEQ CONTROLLED RELEASE TAB PO ONE (10:30)
--- NOTE | 2017-03-26 10:30 | HHI.CCPN ---
Subjective Remarks/Hospital Course This is a 71-year-old male. Date of admission 03/25/2017. Asked medical history includes legal blindness, diabetes with peripheral neuropathy, chronic kidney disease stage III A, coronary artery disease, congestive heart failure unknown etiology, peripheral vascular disease, dyslipidemia, osteoporosis, degenerative disc disease constipation elevated BMI greater than 40 and [place]. Patient presents to [facility] emergency department today after being seen as nursing facility with low heart rate and confused. Patient was a DNR and initially patient was not transvenously paced due to hypertension/ well perfused. Patient received 0.5 mill grams atropine in route without improvement in heart rate. Workup included EKG which revealed high degree AV block type II Mobitz and higher. EKG revealed rates around 40. Right bundle-branch block. Left anterior fascicular block. LVH. Troponin was 0.13. Potassium 3.9. Magnesium 2.2. Normocytic anemia.. Patient was evaluated by Dr. Santos who did not recommend pacemaker this time. Patient would benefit the ICU for observation as his systolic blood pressures currently in the 180s to 200s and he is mentating appropriately at this time. He will evaluate for pacemaker heart block persists. Discussed with Shaila Hughes, healthcare proxy is amenable to pacemaker placement if indicated. Subjective 03/26 - afebrile. Currently in a high-grade/30. Heart block. Hemodynamically stable. Actually hypertensive. Awake and alert and following commands. Plan for transvenous pacemaker in a.m. Objective Vital Signs Date Time Temp Pulse Resp B/P (MAP) Pulse Ox O2 Delivery O2 Flow Rate FiO2 03/26/17 08:56 96 Nasal Cannula 2.00 03/26/17 06:39 35 181/77 03/25/17 13:40 21 03/25/17 12:34 98.1 Intake and Output 03/26/17 03/26/17 03/27/17 08:00 16:00 00:00 Intake Total 2736 ml Output Total 0 ml Balance 2736 ml Result Diagram: 03/26/17 0330 03/26/17 0330 Imaging Last Impressions Head CT 03/25/17 1320 Signed Impressions: Service Date/Time: Saturday, March 25, 2017 15:38 - CONCLUSION: Negative for acute process. Donald Ramirez MD FACR Chest X-Ray 03/25/17 1258 Signed Impressions: Service Date/Time: Saturday, March 25, 2017 13:02 - CONCLUSION: Compensated cardiomegaly otherwise negative Board Certified Radiologist. This report was verified electronically. Objective Remarks GENERAL: 71-year-old male, resting in bed in no acute distress SKIN: Warm and dry. Well perfused. No rash. HEAD: Atraumatic. Normocephalic. EYES: Pupils equal and round about 3 millimeters bilaterally and minimally reactive. No scleral icterus. No injection or drainage. ENT: No nasal bleeding or discharge. Mucous membranes pink and moist. NECK: Trachea midline. No JVD. CARDIOVASCULAR: Bradycardia, IR. S1, S2. No S4. Without murmur. RESPIRATORY: Clear to auscultation. Breath sounds equal bilaterally. GASTROINTESTINAL: Abdomen soft, non-tender, obese. Hypoactive bowel sounds are appreciated. Hepatic and splenic margins not palpable. MUSCULOSKELETAL: Extremities trace to 1+ peripheral nonpitting edema. No obvious deformities. NEUROLOGICAL: Awake and alert to person only currently.. No obvious cranial nerve deficits. Motor grossly within normal limits. Five out of 5 muscle strength in the arms and legs. Normal speech. A/P Assessment and Plan Neuro/Psych: Depression NOS Diabetic neuropathy Acetaminophen 650 mg by mouth every 4 hours when necessary fever/pain 1-5 Hydrocodone/acetaminophen 5/325 one tablet every 4 hours. Pain 6-10 Holding gabapentin 600 mg by mouth twice a day and 300 mg at night in light of heart block Holding sertraline 50 mg by mouth daily. Resume when clinically indicated CT brain 03/25 revealed no acute intracranial findings CV: Elevated troponin Congestive heart failure NOS Coronary artery disease Dyslipidemia Peripheral vascular disease Evaluated by Dr. Santos cardiology in ED. Likely high degree AV block. Second -degree type 2-1 versus higher. Heart rate currently in the 30s. Systolic blood pressure around 200. No indication for emergent temporary pacemaker at this time. Monitoring in intensive care unit. Temporary transvenous pacer pads placed on patient temporarily Plan on pacemaker in a.m. with Dr. Santos 03/27 As needed hydralazine/Nitropaste for hypertension Continue simvastatin 40 mg by mouth daily for dyslipidemia Continue fenofibrate 145 mg daily and niacin 500 mg daily for dyslipidemia Holding hydrochlorothiazide 25 mg daily and metolazone 5 mg Saturday/. Resume when clinically indicated Continue aspirin 81 mg by mouth daily. 2-D echocardiogram ordered. Cycle troponins. Placed on Cardene drip overnight. Will switch to Cleviprex and schedule hydralazine 25 3 times a day and Isordil 10 3 times a day goal keep systolic blood pressure less than 1 Resp: Nasal cannula to maintain saturations greater than equal to 92% Incentive spirometry while awake Chest x-ray revealed cardiomegaly without signs of overt heart failure. GI: Constipation ADA diet. Nothing by mouth tonight Pantoprazole for GI prophylaxis Maria G-Colace for bowel regimen : [place] by history Chicas catheter if indicated for accurate I's and O's in a critically ill patient Endo: Diabetes mellitus Currently on insulin detemir 10 units subcutaneous twice a day and sliding scale insulin/high regimen with before meals/at bedtime 0300 Accu-Cheks Hemoglobin A1c 7.2 2015 Patient is on insulin detemir 70 units subcutaneous twice a day at [facility] currently on 10 twice a day. Nothing by mouth after midnight Novulin R 6 units 3 times a day with sliding scale with meals along with pioglitazone 45 mg by mouth daily for diabetes Renal: Chronic kidney disease stage IIIa GFR around 50. Monitor urine output Accurate I's and O's Heme: Normocytic anemia Monitor CBC daily. Follow trends. No indication for transfusion of blood products at this time. ID: Monitor for infection. FEN: Hyponatremia Replace electrolyte as clinically indicated. Follow-up sodium in AM. MSK: DDD Osteoporosis BMI greater than 40 Holding meloxicam 15 mill grams by mouth daily for osteoarthritis Physical therapy evaluate and treat Weight loss encouraged Access - Utilize peripheral IV. Central line if indicated Prophylaxis - GI - pantoprazole - DVT - SCD/enoxaparin Critical Care: The total critical care time was 35 minutes. Time to perform other separately billable procedures was not included in the critical care time. Segundo Finney MD Mar 26, 2017 10:30
--- NOTE | 2017-03-26 11:18 | EKG ---
Date Performed: 03/25/2017 Time Performed: 12:25:06 PTAGE: 71 years EKG: Normal Sinus rhythm Predominantly 2:1 AV block Left anterior fascicular block Right bundle branch block Left atrial abno rmality Clinical follow-up recommended ABNORMAL ECG NO PREVIOUS TRACING DOCTOR: Mehdi Schaeffer Interpretating Date/Time 03/26/2017 11:18:03
[2017-03-26] MEDS: hydrALAZINE HCL 25 MG TAB PO SCH ×2 (14:00→21:18)
[2017-03-26] MEDS: ISOSORBIDE DINITRATE 10 MG TAB PO SCH ×2 (14:00→21:31)
--- NOTE | 2017-03-26 15:03 | ECHRPT ---
Indication: A-FIB CONCLUSIONS Normal left ventricular size. Possible mild concentric left ventricular hypertrophy. No regional wall motion abnormalities are present. Mild mitral valve regurgitation. Mild aortic valve sclerosis is present. The pulmonary valve is not well visualized. BP: 181 / 77 HR: 36 Rhythm: Atrial fibrillation MEASUREMENTS (Male / Female) Normal Values Technical Quality:Fair 2D ECHO LV Diastolic Diameter PLAX 4.8 cm 4.2 - 5.9 / 3.9 - 5.3 cm LV Systolic Diameter PLAX 3.1 cm IVS Diastolic Thickness 1.4 cm 0.6 - 1.0 / 0.6 - 0.9 cm LVPW Diastolic Thickness 1.4 cm 0.6 - 1.0 / 0.6 - 0.9 cm LV Relative Wall Thickness 0.6 RV Internal Dim ED PLAX 2.3 cm LVOT Diameter 2.0 cm LA Systolic Diameter LX 4.0 cm 3.0 - 4.0 / 2.7 - 3.8 cm LV Ejection Fraction MOD 4C 63.7 % LV Cardiac Index MOD 4C 1369.6 cm/minm LV Ejection Fraction 4C AL 64.7 % LV Cardiac Index 4C AL 1431.7 cm/minm M-MODE Aortic Root Diameter MM 3.5 cm AV Cusp Separation MM 2.3 cm DOPPLER AV Peak Velocity 249.0 cm/s AV Peak Gradient 24.8 mmHg AV Mean Gradient 10.0 mmHg AV Velocity Time Integral 56.7 cm LVOT Peak Velocity 168.0 cm/s LVOT Peak Gradient 11.3 mmHg LVOT Velocity Time Integral 38.4 cm LVOT Cardiac Index 1652.2 cm/minm AV Area Cont Eq vti 2.1 cm AV Area Cont Eq pk 2.1 cm MV Area PHT 3.6 cm Mitral E Point Velocity 111.0 cm/s Mitral A Point Velocity 89.8 cm/s Mitral E to A Ratio 1.2 LV E' Lateral Velocity 9.2 cm/s Mitral E to LV E' Lateral Ratio 12.1 LV E' Septal Velocity 6.5 cm/s Mitral E to LV E' Septal Ratio 17.0 PV Peak Velocity 159.0 cm/s PV Peak Gradient 10.1 mmHg FINDINGS LEFT VENTRICLE The left ventricular systolic function is normal with an estimated ejection fraction in the range of 60-65%. Normal left ventricular size. Possible mild concentric left ventricular hypertrophy. No regional wall motion abnormalities are present. RIGHT VENTRICLE Normal right ventricular size and systolic function. LEFT ATRIUM The left atrial size is normal. RIGHT ATRIUM The right atrial size is normal. ATRIAL SEPTUM Normal atrial septal thickness without atrial level shunting by limited color doppler interrogation. AORTA The aortic root and proximal ascending aorta are normal in size on limited imaging. MITRAL VALVE Mild mitral valve regurgitation. AORTIC VALVE Mild aortic valve sclerosis is present. TRICUSPID VALVE Structurally normal tricuspid valve. No tricuspid valve stenosis or regurgitation. PULMONARY VALVE The pulmonary valve is not well visualized. VESSELS The inferior vena cava is normal in size. PERICARDIUM No pericardial effusion. Mehdi Schaeffer MD (Electronically Signed) Final Date:26 March 2017 15:02
[2017-03-26] MEDS: ACETAMINOPHEN/HYDROcodone 325 MG/5 MG TAB PO PRN (17:48)
[2017-03-26] MEDS: PRAVASTATIN SOD 80 MG TAB PO SCH (21:18)
[2017-03-26] MEDS: NIACIN 500 MG EXTENDED RELEASE TAB PO SCH (21:18)
[2017-03-26] MEDS: RESP: ALBUTEROL 2.5 MG/3 ML NEB (PRN) INH (21:36)
[2017-03-27] VITALS (15 sets, daily range): BP systolic 157–178; BP diastolic 64–75; PULSE 32–92; RESP 16–40; TEMP 97.6–98.6; O2SAT 92–100
[2017-03-27] MEDS: NITROGLYCERIN 2% OINT 1 GM PACKET TOPICAL PRN (01:00)
[2017-03-27] MEDS: SODIUM CHLOR 0.9% 1000 ML INJ 1,000 ML IV SCH ×3 (03:31→22:04)
[2017-03-27] MEDS: CHLORHEXIDINE GLUCONATE 2 % 1 PACK (2 CLOTHS) TOP SCH ×2 (04:00→21:19)
[2017-03-27] MEDS: RESP: ALBUTEROL 2.5 MG/3 ML NEB (PRN) INH (04:34)
[2017-03-27] MEDS: hydrALAZINE HCL 25 MG TAB PO SCH ×2 (06:50→22:06)
[2017-03-27] MEDS: ISOSORBIDE DINITRATE 10 MG TAB PO SCH ×2 (06:50→22:05)
[2017-03-27] MEDS: INSULIN NovoLIN REGULAR SUPPLEMENTAL SCALE SQ SCH ×4 (06:52→21:00)
[2017-03-27] MEDS: ARTIFICIAL TEARS OPTH OINT 3.5 APPLIC/3.5 GM TUBO EACH EYE SCH ×2 (06:54→22:05)
[2017-03-27 07:26] LABS: APTT (PATIENT) 28.6 SEC (24.3-30.1); INTERNATIONAL NORMALIZED RATIO 1.1 RATIO; PROTHROMBIN TIME - PATIENT 11.8 SEC (9.8-11.6)
[2017-03-27 07:43] LABS: POTASSIUM 3.9 MEQ/L (3.5-5.1)
[2017-03-27 07:44] LABS: HEMATOCRIT 36.1 % (39.0-51.0); MEAN CELL VOLUME 90.8 FL (80.0-100.0); MEAN CORPUSCULAR HEMOGLOBIN 30.9 PG (27.0-34.0); PLATELET COUNT 181 TH/MM3 (150-450); RED BLOOD COUNT 3.98 MIL/MM3 (4.50-5.90); REVIEW FLAG FINAL; WHITE BLOOD COUNT 7.4 TH/MM3 (4.0-11.0)
[2017-03-27] MEDS: DOCUSATE SODIUM 50 MG/SENNA 8.6 MG TAB PO SCH ×2 (09:00→22:06)
[2017-03-27] MEDS: ARTIFICIAL TEARS OPTH SOLN 15 ML BTL EACH EYE SCH ×2 (09:00→22:05)
[2017-03-27] MEDS: PANTOPRAZOLE SODIUM 40 MG VIAL IV SCH (09:17)
[2017-03-27] MEDS: ASPIRIN EC 81 MG TABEC PO SCH (09:17)
[2017-03-27] MEDS: FENOFIBRATE 145 MG TAB PO SCH (09:17)
[2017-03-27] MEDS: SODIUM CHLORIDE 0.9% FLUSH 10 ML FLUSH IV FLUSH SCH ×2 (09:17→22:06)
[2017-03-27] MEDS: POTASSIUM CHLORIDE 10 MEQ CAP PO SCH (09:17)
[2017-03-27] MEDS: MULTIVITAMINS/MINERALS THERAPEUTIC TAB PO SCH (09:17)
[2017-03-27] MEDS: ACETAMINOPHEN/HYDROcodone 325 MG/5 MG TAB PO PRN (09:18)
--- NOTE | 2017-03-27 10:21 | PD.CARD.PN ---
Subjective Subjective Remarks DATE 03/26/2018 Pt seen and examined. No CP or SOB. Now in CHB with junctional escape at 30 bpm. Objective Medications Active Medications Clevidipine 50 ml @ 2 mls/hr Q24H PRN IV; Start 03/26/17 at 10:22 Hydralazine HCl (Apresoline) 25 mg Q8HR PO Last administered on 03/27/17 06:50 ; Admin Dose 25 MG; Start 03/26/17 at 14:00 Isosorbide Dinitrate (Isordil) 10 mg Q8HR PO Last administered on 03/27/17 06: 50; Admin Dose 10 MG; Start 03/26/17 at 14:00 Potassium Chloride (KCl) 40 meq ONCE ONCE PO Last administered on 03/26/17 10: 30; Admin Dose 40 MEQ; Start 03/26/17 at 10:30; Stop 03/26/17 at 11:44; Status DC Vital Signs / I&O Vital Signs Date Time Temp Pulse Resp B/P (MAP) Pulse Ox O2 Delivery O2 Flow Rate FiO2 03/27/17 08:00 98.0 38 22 158/69 (98) 96 03/27/17 08:00 38 03/27/17 06:00 37 03/27/17 04:00 97.6 37 28 169/70 (103) 92 03/27/17 04:00 37 03/27/17 02:00 39 03/27/17 00:00 39 03/27/17 00:00 98.2 39 40 173/73 (106) 97 03/26/17 22:00 39 03/26/17 21:33 97 Nasal Cannula 2.00 03/26/17 20:00 98.7 38 33 193/80 (117) 99 03/26/17 20:00 38 03/26/17 18:00 34 03/26/17 16:00 98.0 36 20 189/91 (123) 96 03/26/17 16:00 36 03/26/17 14:00 34 03/26/17 12:00 33 03/26/17 11:15 42 126/59 I/O 03/26/17 03/26/17 03/26/17 03/27/17 03/27/17 03/27/17 07:00 15:00 23:00 07:00 15:00 23:00 Intake Total 2736 ml 266 ml 400 ml 1614 ml Output Total 0 ml 0 ml Balance 2736 ml 266 ml 400 ml 1614 ml Intake Oral 480 ml 400 ml 200 ml IV Total 2256 ml 266 ml 1414 ml Output Stool Total 0 ml 0 ml # Voids 10 6 5 # Bowel Movements 1 Physical Exam GENERAL: In NAD SKIN: Warm and dry. HEAD: Normocephalic. EYES: No scleral icterus. No injection or drainage. NECK: Supple, trachea midline. No JVD or lymphadenopathy. CARDIOVASCULAR: Severely bradycardic, without murmurs, gallops, or rubs. RESPIRATORY: Breath sounds equal bilaterally. No accessory muscle use. GASTROINTESTINAL: Abdomen soft, non-tender, nondistended. MUSCULOSKELETAL: No cyanosis, mild edema. Laboratory Laboratory Tests Test 03/27/17 06:18 White Blood Count 7.4 TH/MM3 Red Blood Count 3.98 MIL/MM3 Hemoglobin 12.3 GM/DL Hematocrit 36.1 % Mean Corpuscular Volume 90.8 FL Mean Corpuscular Hemoglobin 30.9 PG Mean Corpuscular Hemoglobin Concent 34.0 % Red Cell Distribution Width 14.0 % Platelet Count 181 TH/MM3 Mean Platelet Volume 10.4 FL Prothrombin Time 11.8 SEC Prothromb Time International Ratio 1.1 RATIO Activated Partial Thromboplast Time 28.6 SEC Blood Urea Nitrogen 30 MG/DL Creatinine 1.40 MG/DL Random Glucose 219 MG/DL Calcium Level 7.9 MG/DL Sodium Level 135 MEQ/L Potassium Level 3.9 MEQ/L Chloride Level 102 MEQ/L Carbon Dioxide Level 22.0 MEQ/L Anion Gap 11 MEQ/L Estimat Glomerular Filtration Rate 50 ML/MIN Assessment and Plan Problem List: (1) Complete heart block ICD Codes: I44.2 - Atrioventricular block, complete (2) Symptomatic bradycardia ICD Codes: R00.1 - Bradycardia, unspecified (3) Diabetes ICD Codes: E11.9 - Type 2 diabetes mellitus without complications (4) Hyperlipidemia ICD Codes: E78.5 - Hyperlipidemia, unspecified Assessment and Plan Now in complete heart block with severe bradycardia. Proceed with the placement of permanent pacemaker. LV function preserved. Cj Santos MD Mar 27, 2017 10:21
--- NOTE | 2017-03-27 12:26 | HHI.CCPN ---
Subjective Remarks/Hospital Course This is a 71-year-old male. Date of admission 03/25/2017. Asked medical history includes legal blindness, diabetes with peripheral neuropathy, chronic kidney disease stage III A, coronary artery disease, congestive heart failure unknown etiology, peripheral vascular disease, dyslipidemia, osteoporosis, degenerative disc disease constipation elevated BMI greater than 40 and FARNSWORTH. Patient presents to [facility] emergency department today after being seen as nursing facility with low heart rate and confused. Patient was a DNR and initially patient was not transvenously paced due to hypertension/ well perfused. Patient received 0.5 mill grams atropine in route without improvement in heart rate. Workup included EKG which revealed high degree AV block type II Mobitz and higher. EKG revealed rates around 40. Right bundle-branch block. Left anterior fascicular block. LVH. Troponin was 0.13. Potassium 3.9. Magnesium 2.2. Normocytic anemia.. Patient was evaluated by Dr. Santos who did not recommend pacemaker this time. Patient would benefit the ICU for observation as his systolic blood pressures currently in the 180s to 200s and he is mentating appropriately at this time. He will evaluate for pacemaker heart block persists. Discussed with Shaila Hughes, healthcare proxy is amenable to pacemaker placement if indicated. 03/26 - afebrile. Currently in a high-grade/3rd degree Heart block. Hemodynamically stable. Actually hypertensive. Awake and alert and following commands. Plan for transvenous pacemaker in a.m. Subjective 03/27: Heart rate remains in the 30s. Plan for pacemaker at 1 PM today. Awake and alert and following commands. Positive BM. Objective Vital Signs Date Time Temp Pulse Resp B/P (MAP) Pulse Ox O2 Delivery O2 Flow Rate FiO2 03/27/17 10:00 37 03/27/17 08:00 98.0 22 158/69 (98) 96 03/26/17 21:33 Nasal Cannula 2.00 Intake and Output 03/27/17 03/27/17 03/28/17 08:00 16:00 00:00 Intake Total 1614 ml Balance 1614 ml Result Diagram: 03/27/17 0618 03/27/17 0618 Imaging Last Impressions Head CT 03/25/17 1320 Signed Impressions: Service Date/Time: Saturday, March 25, 2017 15:38 - CONCLUSION: Negative for acute process. Donald Ramirez MD FACR Chest X-Ray 03/25/17 1258 Signed Impressions: Service Date/Time: Saturday, March 25, 2017 13:02 - CONCLUSION: Compensated cardiomegaly otherwise negative Board Certified Radiologist. This report was verified electronically. Objective Remarks GENERAL: 71-year-old male, resting in bed in no acute distress SKIN: Warm and dry. Well perfused. No rash. HEAD: Atraumatic. Normocephalic. EYES: Pupils equal and round about 3 millimeters bilaterally and minimally reactive. No scleral icterus. No injection or drainage. ENT: No nasal bleeding or discharge. Mucous membranes pink and moist. NECK: Trachea midline. No JVD. CARDIOVASCULAR: Bradycardia, IR. S1, S2. No S4. Without murmur. RESPIRATORY: Clear to auscultation. Breath sounds equal bilaterally. GASTROINTESTINAL: Abdomen soft, non-tender, obese. Hypoactive bowel sounds are appreciated. Hepatic and splenic margins not palpable. MUSCULOSKELETAL: Extremities trace to 1+ peripheral nonpitting edema. No obvious deformities. NEUROLOGICAL: Awake and alert to person only currently.. No obvious cranial nerve deficits. Motor grossly within normal limits. Five out of 5 muscle strength in the arms and legs. Normal speech. A/P Assessment and Plan Neuro/Psych: Depression NOS Diabetic neuropathy Acetaminophen 650 mg by mouth every 4 hours when necessary fever/pain 1-5 Hydrocodone/acetaminophen 5/325 one tablet every 4 hours. Pain 6-10 Holding gabapentin 600 mg by mouth twice a day and 300 mg at night in light of heart block Holding sertraline 50 mg by mouth daily. Resume when clinically indicated CT brain 03/25 revealed no acute intracranial findings CV: Elevated troponin Congestive heart failure NOS Coronary artery disease Dyslipidemia Peripheral vascular disease Evaluated by Dr. Santos cardiology in ED. Likely high degree AV block. Second -degree type 2-1 versus higher. Heart rate currently in the 30s. Systolic blood pressure around 160. No indication for emergent temporary pacemaker at this time. Monitoring in intensive care unit. Temporary transvenous pacer pads placed on patient temporarily Plan on pacemaker in a.m. with Dr. Santos 03/27 As needed hydralazine/Nitropaste for hypertension Continue simvastatin 40 mg by mouth daily for dyslipidemia Continue fenofibrate 145 mg daily and niacin 500 mg daily for dyslipidemia Holding hydrochlorothiazide 25 mg daily and metolazone 5 mg Saturday/. Resume when clinically indicated Continue aspirin 81 mg by mouth daily. 2-D echocardiogram ordered. Cycle troponins. Currently on Cleviprex and scheduled hydralazine 25 3 times a day and Isordil 10 3 times a day goal keep systolic blood pressure less than 180 Resp: Nasal cannula to maintain saturations greater than equal to 92% Incentive spirometry while awake Chest x-ray revealed cardiomegaly without signs of overt heart failure. GI: Constipation ADA diet. Nothing by mouth currently for planned pacemaker today Pantoprazole for GI prophylaxis Maria G-Colace for bowel regimen : FARNSWORTH by history Chicas catheter if indicated for accurate I's and O's in a critically ill patient Endo: Diabetes mellitus Currently on insulin detemir 10 units subcutaneous twice a day and sliding scale insulin/high regimen with before meals/at bedtime 0300 Accu-Cheks Hemoglobin A1c 7.2 2015 Patient is on insulin detemir 70 units subcutaneous twice a day at [facility] currently on 10 twice a day. Nothing by mouth after midnight Novulin R 6 units 3 times a day with sliding scale with meals along with pioglitazone 45 mg by mouth daily for diabetes Renal: Chronic kidney disease stage IIIa GFR around 50. Monitor urine output Accurate I's and O's Heme: Normocytic anemia Monitor CBC daily. Follow trends. No indication for transfusion of blood products at this time. ID: Monitor for infection. FEN: Hyponatremia Replace electrolyte as clinically indicated. Follow-up sodium in AM. MSK: DDD Osteoporosis BMI greater than 40 Holding meloxicam 15 mill grams by mouth daily for osteoarthritis Physical therapy evaluate and treat Weight loss encouraged Access - Utilize peripheral IV. Central line if indicated Prophylaxis - GI - pantoprazole - DVT - SCD/enoxaparin on hold today for pacemaker Level II follow-up Addendum. Patient was sent to [facility] post procedure. We'll transfer care to hospitalist in a.m. 03/28. Segundo Finney MD Mar 27, 2017 12:26
--- NOTE | 2017-03-27 13:11 | PD.CARD.PN ---
Subjective Subjective Remarks No angina or CHF, mildly confused Objective Medications Active Medications Hydralazine HCl (Apresoline) 25 mg Q8HR PO Last administered on 03/27/17 06:50 ; Admin Dose 25 MG; Start 03/26/17 at 14:00 Isosorbide Dinitrate (Isordil) 10 mg Q8HR PO Last administered on 03/27/17 06: 50; Admin Dose 10 MG; Start 03/26/17 at 14:00 Vital Signs / I&O Vital Signs Date Time Temp Pulse Resp B/P (MAP) Pulse Ox O2 Delivery O2 Flow Rate FiO2 03/27/17 10:00 37 03/27/17 08:00 98.0 38 22 158/69 (98) 96 03/27/17 08:00 38 03/27/17 06:00 37 03/27/17 04:00 97.6 37 28 169/70 (103) 92 03/27/17 04:00 37 03/27/17 02:00 39 03/27/17 00:00 39 03/27/17 00:00 98.2 39 40 173/73 (106) 97 03/26/17 22:00 39 03/26/17 21:33 97 Nasal Cannula 2.00 03/26/17 20:00 98.7 38 33 193/80 (117) 99 03/26/17 20:00 38 03/26/17 18:00 34 03/26/17 16:00 98.0 36 20 189/91 (123) 96 03/26/17 16:00 36 03/26/17 14:00 34 I/O 03/26/17 03/26/17 03/26/17 03/27/17 03/27/17 03/27/17 06:59 14:59 22:59 06:59 14:59 22:59 Intake Total 2736 ml 266 ml 400 ml 1614 ml Output Total 0 ml 0 ml Balance 2736 ml 266 ml 400 ml 1614 ml Intake Oral 480 ml 400 ml 200 ml IV Total 2256 ml 266 ml 1414 ml Output Stool Total 0 ml 0 ml # Voids 10 6 5 # Bowel Movements 1 Physical Exam GENERAL: In NAD SKIN: Warm and dry. HEAD: Normocephalic. EYES: No scleral icterus. No injection or drainage. NECK: Supple, trachea midline. No JVD or lymphadenopathy. CARDIOVASCULAR: Severely bradycardic, without murmurs, gallops, or rubs. RESPIRATORY: Breath sounds equal bilaterally. No accessory muscle use. GASTROINTESTINAL: Abdomen soft, non-tender, nondistended. MUSCULOSKELETAL: No cyanosis, mild edema. Laboratory Laboratory Tests Test 03/27/17 06:18 White Blood Count 7.4 TH/MM3 Red Blood Count 3.98 MIL/MM3 Hemoglobin 12.3 GM/DL Hematocrit 36.1 % Mean Corpuscular Volume 90.8 FL Mean Corpuscular Hemoglobin 30.9 PG Mean Corpuscular Hemoglobin Concent 34.0 % Red Cell Distribution Width 14.0 % Platelet Count 181 TH/MM3 Mean Platelet Volume 10.4 FL Prothrombin Time 11.8 SEC Prothromb Time International Ratio 1.1 RATIO Activated Partial Thromboplast Time 28.6 SEC Blood Urea Nitrogen 30 MG/DL Creatinine 1.40 MG/DL Random Glucose 219 MG/DL Calcium Level 7.9 MG/DL Sodium Level 135 MEQ/L Potassium Level 3.9 MEQ/L Chloride Level 102 MEQ/L Carbon Dioxide Level 22.0 MEQ/L Anion Gap 11 MEQ/L Estimat Glomerular Filtration Rate 50 ML/MIN Assessment and Plan Problem List: (1) Complete heart block ICD Codes: I44.2 - Atrioventricular block, complete (2) Symptomatic bradycardia ICD Codes: R00.1 - Bradycardia, unspecified (3) Diabetes ICD Codes: E11.9 - Type 2 diabetes mellitus without complications (4) Hyperlipidemia ICD Codes: E78.5 - Hyperlipidemia, unspecified Assessment and Plan Complete heart block with severe bradycardia, no improvement. Proceed with the placement of permanent pacemaker today. LV function preserved. Consent obtained from pt's POA. Cj Santos MD Mar 27, 2017 13:11
--- NOTE | 2017-03-27 13:11 | OTSOAPIP ---
TIME SESSION COMPLETED: 1000 TREATMENT TIME: 0 MINS. CHART REVIEWED. INTERDISCIPLINARY COMMUNICATION: SPOKE WITH NURSING PATIENT IS BEING PREPARED FOR PLACEMENT OF A PACEMAKER PLAN: WILL CONTINUE TO FOLLOW Therapist: LIO LONG/Bianka Signature on file
[2017-03-27] MEDS ORDERED: KETAMINE HCL 500 MG/5 ML VIAL ONE (13:38)
[2017-03-27] MEDS ORDERED: MIDAZOLAM HCL 2 MG/2 ML VIAL ONE (13:38)
[2017-03-27] MEDS ORDERED: VANCOMYCIN 500 MG VIAL ONE (13:46)
[2017-03-27] MEDS ORDERED: VANCOMYCIN HCL 1000 MG VIAL ONE (13:47)
[2017-03-27] MEDS ORDERED: ceFAZolin INJ 1,000 MG VIAL ONE (13:47)
[2017-03-27] MEDS ORDERED: LIDOCAINE HCL 2% 50 ML VIAL ONE (13:51)
--- NOTE | 2017-03-27 15:35 | CATHPROC ---
[employer] HIS Report Study Information Study Number Admission Scheduled Start Study Start [id number] Mar 25 2017 3:07PM 03/27/2017 Mar 27 2017 9:48AM [place] Service Cardiac Pacer/ICD Admit Source Facility Department Other [facility] Etcher Physician and Clinical Staff Initial Cj Umanzor Physical Therapy Professor Jes Dunn,RT(R) Other Jesus Cervantes,RT(R) Other Anesthesia, SIMULATION TECH Recorder Ninfa Fowler,BSRN Scrub Estelle Davila,RT(R) TECH2 Procedures Performed Procedure Lead Insertion Equipment Time Muleser Description Size Mfg Part Number Used/Scraped 09:58 [employer] MEDICAL DRAPE, R[place]IELD X-RAY 12X17 12X17 D-100 *[id number] Used 14:55 ANGIO-DYNAMICS LEAD, TENDRIL MRI 46CM [id number] Used MPIS-502-10.0- INTRODUCER SET, 09:58 [employer] FR 5 SC-NT-U-SST Used MICROPUNCTURE, STIFFENED *[id number] MPIS-502-10.0- INTRODUCER SET, 09:58 [employer] FR 5 SC-NT-U-SST Used MICROPUNCTURE, STIFFENED *[id number] 09:58 [employer] DRAPE, IOBAN 2 [id number] 26cm x 20cm Used *[id number] TP-1103 09:58 [employer] SUTURE, STRIP PLUS 1/2" * Used *[id number] 09:58 MEDLINE PACER ADHESIVE, MASTISOL 2/3CC 2/3CC 0523-48 Used 09:58 MEDLINE PACER MCCARTHY, LIMB * 2530 *[id number] Used [id number] 09:58 MEDLINE PACER PACK, PACER CUSTOM * Used *[id number] 09:58 MEDLINE PACER PEN, SKIN DUAL W/ RULER * Used *[id number] 13:32 [employer] PACER SAFE SHEATH, FR8, 13CM FR 8 CLS-1008 Used 13:32 [employer] MEDICAL PACER SAFE SHEATH, FR8, 13CM FR 8 CLS-1008 Used PROBE COVER, STERILE [id number] 09:58 [employer] * Used ULTRASOUND W/ GEL *[id number] 14:27 Needle Sponge Count 2 22 Used 14:27 Needle Sponge Count 25 1 Used 15:04 Needle Sponge Count 30 1 Used 14:27 Needle Sponge Count 6 6 Used [id number] *[id number] SUTURE, 0 ETHIBOND [CT1] (CX21D), 8pk SUTURE, 2-0 VICRYL [CT1] (UFV439S) SUTURE, 2-0 VICRYL [CT1] ([id number]) SUTURE, 4-0 VICRYL [PS2] (QXU573U) [id number] 09:58 [employer],WARM AIR CCL * Used *[id number] LEAD, TENDRIL ACTIVE FIXATION 14:52 [employer] 58 [id number] Used BIPOLAR PACEMAKER, GARO ANDERSON 15:01 [employer] [id number] Used MRI [facility] PAD, ELECTROSURGICAL 09:58 * [id number] *[id number] Used SURGICAL GROUNDING ORANGE [id number] 09:58 [employer] ELECTRODE, PRO-PADZ BIPHASIC * Used *54830 Equipment Model, Serial, Lot Number and Expiration Data Description Model Number Serial Number Lot Number Expiration Date LEAD, TENDRIL ACTIVE FIXATION [id number] 06-27-2017 BIPOLAR PACEMAKER, GARO ANDERSON MRI [id number] 09-25-2018 History: Current Medications Medication Dosage/Unit Route Frequency Last Date/Time Taken Statins (any) LOVENOX ASA History: Allergies Allergy Reaction NKDA History: Risk Factors Family History of Hypertension Dyslipidemia Previous NV Previous Heart Failure Premature CAD Yes Yes No No Yes Prior Valve Prior PCI Prior CABG Surgery No No No Cerebrovascular Peripheral Artery Chronic Lung On Dialysis Diabetes Diabetes Therapy Disease Disease Disease No No Yes No Yes Insulin History: Symptoms/Diagnosis Selection Items Syncope History: Stress Tests Stress or Imaging Studies Performed No History: Other Disease Selection Items Depression HTN History: Other Current Smoker No Labs Hgb (g/dl) Hct (%) WBC (l/cumm) Platelets (thousands) 11.60-17.00 35.00-51.00 4.00-11.00 150.00-450.00 12.3 36.1 7.4 181 Glucose (mg/dl) BUN (mg/dl) Creatinine (mg/dl) BUN:Creatinine (1:x) 74.00-106.00 7.00-18.00 0.50-1.30 10.00-20.00 219 30 1.4 21.4 Na (meq/l) K (meq/l) 136.00-145.00 3.50-5.10 135 3.9 INR (PTT:PT) 0.90-1.10 1.1 Medication Medication Total Dose (Bolus/Oral) Medication Total Dosage/Unit 2% XYLOCAINE 50 mL Medications (Bolus/Oral) Medication Time Given Dosage/Unit Administered By Reason 2% XYLOCAINE 03/27/2017 2:41:21 PM 50 mL Cj Carpenter 50 mL 2% XYLOCAINE given in lab by Cj Carpenter in Left shoulder via Subcutaneous. Medication (Drip) Medication Time Given Dosage/Unit Concentration/Unit Diluent (ml) Solution ANCEF 03/27/2017 2:07:00 PM 1 g 1 g ANCEF given by Anesthesia, SIMULATION TECH in Left Antecubital via Peripheral IV. Ordered by Cj Carpenter . IV Solutions 03/27/2017 2:15:30 PM 0 mL (IV) 500 NaCl .9 IV Solutions given in lab by Anesthesia, SIMULATION TECH in Left Antecubital via Peripheral IV. Pump/Drip Flow = 20 ml/hr using NaCl .9. VANCOMYCIN DRIP 03/27/2017 2:06:00 PM 1 g 1 g VANCOMYCIN DRIP given in lab by Anesthesia, SIMULATION TECH in Left Antecubital via Peripheral IV. Initial Case Assessment Cardiovascular HR Rhythm NIBP Chest Pain 43 SHELBY 166/74 0 Edema Present Skin color Skin Mild Pale Warm Neurological State Oriented to time-place- Alert Moves all extremities person Respiration - General Respiration Rate SpO2 (%) (B/min) 20 100 Chronological Log Time Study Chronological Log 13:55:00 Anesthesia at bedside. Assumes care of patient. AIDA PATEL SIMULATION TECH 13:55:00 Patient arrived via Bed. 13:56:00 DR CARPENTER SIGNED PTS CHEST 14:00:42 Patient Name, D.O.B, / Armband Verified By R.N. 14:00:54 Pre-op and post- op instructions given; patient acknowledges understanding of instruction s. 14:01:10 Verbal Stimulation=2 Physical Stimulation=2 Airway=2 Respiration=2 TOTAL=8. (0=absent, 1=li mited, 2=present) 14:02:45 Patient has been NPO for More than 6Hrs. 14:03:56 Skin Breakdown-BRUISE RIGHT HAND 14:06:00 1 g VANCOMYCIN DRIP given in lab by Anesthesia, SIMULATION TECH in Left Antecubital via Peripheral IV. 14:07:00 1 g ANCEF given by Anesthesia, SIMULATION TECH in Left Antecubital via Peripheral IV. Ordered by Cj Alberto. 14:13:50 Reference ECG taken 14:15:15 Patient Warmer Placed on the Table. 14:15:18 A # 20 IV was noted in the Antecubital (left). Grade = 0 IV Solutions given in lab by Anesthesia, SIMULATION TECH in Left Antecubital via Peripheral IV. Pump/Drip Flow = 20 ml/hr using 14:15:30 NaCl .9. 14:15:49 History and physical on the chart or being dictated. 14:15:53 HR=38 bpm, PWZU=604/74 mmhg, DqI7=168 %, Resp=19 B/min, Pain=0, Dotty=10, Victor=2 Assessment: Initial Case, HR=43 BPM, Rhythm=SHELBY, DXZM=042/74 mmhg, Chest Pain=0, Edema=Mild, Color=Pale, Skin = Warm 14:16:32 Neurological: State=Alert, Ox3, BLACKWELL Respiration: Resp=20 B/min, ZfU0=427 % 14:17:22 Table restraints applied according to hospital policy 14:17:25 Left Upper Chest Prepped Times Two. 14:17:26 Right Upper Chest Prepped Times Two. 14:17:38 Disposable Defibrillator Pads Placed(SANDWICHED) On Patient. 14:17:55 Bovie ground pad applied to: RT THIGH 14:18:19 2% CHLORHEXIDINE GLUCONATE WASH AND NASAL SWIPE DONE PRIOR TO PROCEDURE. 14:18:22 Pre-procedure assessment data was performed with the previous procedure. First Sponge And Instrument Count Done by Ninfa Fowler BSRN. 14:26:51 Hypo's: 6, Sponges: 30, Bovie/scratch: 2 Sutures: 11, Blades: 2, Instruments: 26, Syveck Patches: 0 10 MORE RAYTECS ADDED TO COUNT 14:29:21 MD NOTIFIED PT IS READY 14:35:23 MD arrived. 14:39:27 FLUIDS OPENED Time Out. Correct patient, procedure, procedure equipment, site and side verified with physicia n present. Time 14:39:50 concurred by MD, individual staff and SIMULATION TECH. Time Out #2 - Consents verified, patient in correct position, all results are labled and displa yed, safety precautions 14:39:54 taken, antibiotics administered. Time out concurred by MD, individual staff and SIMULATION TECH in procedu re 14:40:56 Case Start 14:41:21 50 mL 2% XYLOCAINE given in lab by Cj Carpenter in Left shoulder via Subcutaneous. 14:42:30 Surgical Incision Made. 14:43:00 A pocket was created at the Lt. upper chest. 14:43:32 ONE antibiotic sponge put into the surgical pocket. 14:46:23 Vascular access was obtained in the Subclav. Vein (Lft. 1ST 14:46:24 Wire inserted 14:48:03 Vascular access was obtained in the Subclav. Vein (Lft. 2ND 14:48:10 Wire inserted 14:49:51 A LEAD, TENDRIL ACTIVE FIXATION BIPOLAR 58 was inserted and positioned in the RV. 14:51:25 Lead placement verified under fluoroscopy 14:52:41 The RV lead impedance and threshold being tested. 14:55:11 The RV lead was sutured to the fascia. 14:57:23 A LEAD, TENDRIL MRI 46CM was inserted and positioned in the RA. 14:59:27 Lead placement verified under fluoroscopy 15:02:14 The Atrial lead impedance and threshold is being tested. 15:04:22 The Atrial lead was sutured to the fascia. 15:04:30 Pocket flushed with antibiotic solution 15:05:42 A PACEMAKER, ASSURITY DR RF MRI was connected and placed in the pocket. 15:09:11 One Antibiotic sponge removed from the surgical pocket. Second Sponge And Instrument Count Done by Cj Carpenter. 15:13:13 Hypo's: 6, Sponges: 30, Bovie/scratch: 2 Sutures: ~SUTURE~, Blades: 2, Instruments: 26, Syveck Patches: 0 10 raytecs added to count 15:14:01 The pocket was closed. 15:14:03 Implant Procedure was performed. 15:14:10 A PPM Implant . (Dual) 15:15:10 Case End 15:15:39 PT GOING TO PACU TO RECOVER THEN TO CIC The Final Sponge And Instrument Count Done by Cj Carpenter. 15:30:35 Hypo's: 6, Sponges: 30, Bovie/scratch: 2 Sutures: 11, Blades: 2, Instruments: 26, Syveck Patches: 0 15:33:18 Steri-strips and a sterile dressing applied to site. 15:33:23 PACU called. 15:33:35 A sling was placed on the affected arm. End Study - Contrast Media Used In Study Contrast Total Opened (mL) Total Used (mL) Total Wasted (mL) Unspecified 0 0 0 End Study - Maximum Contrast Load Max Contrast Load (mL) 494.6 End Study - Radiation Exposure Fluoro Time (minutes) 2.7 End Study - Patient Disposition Complications Transferred To Telemetry Bed
[2017-03-27] MEDS ORDERED: *RESP: ALBUTEROL 2.5 MG/3 ML NEB (PRN) PERIprocedural Use ONLY NEB ONE (15:48)
[2017-03-27] MEDS ORDERED: DO NOT ADM ANY ANTICOAGULANT DRUGS PRN (16:00)
[2017-03-27] MEDS ORDERED: *ENALAPRILAT 1.25 MG/ML VIAL PERIprocedural Use ONLY ONE (16:02)
[2017-03-27] MEDS ORDERED: *LABETALOL HCL 100 MG/20 ML VIAL PERIprocedural Use ONLY ONE (16:15)
--- NOTE | 2017-03-27 16:36 | RADRPT ---
EXAM DATE/TIME: 03/27/2017 16:03 [place] COMPARISON: CHEST SINGLE AP, March 25, 2017, 13:02. INDICATIONS : Post pacemaker placement. MEDICAL HISTORY : Cardiovascular disease. Seizures. SURGICAL HISTORY : Pacemaker. ENCOUNTER: Subsequent ACUITY: 3 days PAIN SCORE: Non-responsive. LOCATION: Bilateral chest FINDINGS: Pacemaker device is noted with control pack over the left chest. There is no evidence of pneumothorax or other complication of placement. There is mild vascular congestion in central interstitial promin ence. Cardiac contours are grossly stable. CONCLUSION: Satisfactory pacer placement. Mild fluid overload Jarad Thomas MD on March 27, 2017 at 16:34 Board Certified Radiologist. This report was verified electronically.
[2017-03-27] MEDS: PRAVASTATIN SOD 80 MG TAB PO SCH (22:06)
[2017-03-27] MEDS: NIACIN 500 MG EXTENDED RELEASE TAB PO SCH (22:06)
[2017-03-27] MEDS: ceFAZolin 2 GM PREMIX 50 ML IV SCH (22:06)
[2017-03-28] VITALS (20 sets, daily range): BP systolic 157–176; BP diastolic 71–81; PULSE 68–90; RESP 16–20; TEMP 97.8–98; O2SAT 95–97
[2017-03-28] MEDS ORDERED: VANCOMYCIN INJ 1,000 MG in SODIUM CHLOR 0.9% 250 ML INJ 250 ML IV ONE (02:00)
[2017-03-28] MEDS: ceFAZolin 2 GM PREMIX 50 ML IV SCH ×2 (06:10→14:20)
[2017-03-28] MEDS: hydrALAZINE HCL 25 MG TAB PO SCH ×2 (06:10→14:20)
[2017-03-28] MEDS: INSULIN NovoLIN REGULAR SUPPLEMENTAL SCALE SQ SCH ×3 (06:11→16:39)
[2017-03-28] MEDS: ISOSORBIDE DINITRATE 10 MG TAB PO SCH ×2 (06:11→14:20)
[2017-03-28 07:11] LABS: AUTOMATED NEUTROPHIL # 4.1 TH/MM3 (1.8-7.7); BASOPHIL % 0.3 % (0.0-2.0); EOSINOPHIL % 0.7 % (0.0-4.0); HEMATOCRIT 32.5 % (39.0-51.0); HEMO FLAGS DIFF FINAL; LYMPH % 13.4 % (9.0-44.0); LYMPHOCYTE # 0.8 TH/MM3 (1.0-4.8); MEAN CELL VOLUME 89.8 FL (80.0-100.0); MEAN CORPUSCULAR HEMOGLOBIN 30.7 PG (27.0-34.0); MEAN CORPUSCULAR HGB CONC 34.2 % (32.0-36.0); MONO % 11.8 % (0.0-8.0); NEUT % 73.8 % (16.0-70.0); PLATELET COUNT 173 TH/MM3 (150-450); RED BLOOD COUNT 3.62 MIL/MM3 (4.50-5.90); WHITE BLOOD COUNT 5.6 TH/MM3 (4.0-11.0)
[2017-03-28 07:26] LABS: BICARBONATE 24.4 MEQ/L (21.0-32.0); MAGNESIUM 2.3 MG/DL (1.5-2.5); POTASSIUM 3.7 MEQ/L (3.5-5.1)
[2017-03-28] MEDS: ARTIFICIAL TEARS OPTH SOLN 15 ML BTL EACH EYE SCH ×2 (09:00→13:00)
--- NOTE | 2017-03-28 09:16 | MP ---
cc: JOSEPHINE CARPENTER DATE OF SURGERY: 03/27/2017 INDICATION Complete heart block with severe symptomatic bradycardia. PROCEDURE PERFORMED Placement of [employer] MRI compatible dual-chamber pacemaker. ACCESS SITE Left subclavian vein. EQUIPMENT USED Generator: [employer] Assurity MRI, model [id number], MRI compatible pacemaker, serial number [id number]. Right atrial lead: [employer], model [id number] - 46 cm, MRI compatible, screw-in right atrial lead, serial number [id number]. Right ventricle lead: [employer], model [id number] - 58 cm, MRI compatible, screw-in ventricle lead, serial number [id number]. LEAD TESTING Right atrial lead: P-wave 4.3 mV, lead impedance 550 ohms, pacing threshold 0.75 volts at 0.5 milliseconds. Pacing at 10 volts, no diaphragmatic stimulation. Right ventricle lead: R wave 9.0 mV, lead impedance 730 ohms, pacing threshold 1.0 volts at 0.5 milliseconds. Pacing at 10 volts, no diaphragmatic stimulation. PARAMETERS Mode: DDD, lower rate 60, upper rate 120. DIAGNOSIS Successful placement of [employer] dual-chamber MRI compatible pacemaker. DISPOSITION Mr. Fragoso will be monitored on telemetry after his procedure. We will obtain serial chest x-rays and EKGs. He will be scheduled for a wound check and chronic device reprogramming in our office within 2 weeks. MD KIMBERLY Motley/TLL /3:12 PM /8:55 AM ASYA
--- NOTE | 2017-03-28 09:26 | HHI.PR ---
Subjective Remarks Follow up heart block, diabetes. Patient has no complaints at this time. Pacemaker placed yesterday. Denies chest pain, dyspnea. Per nursing, patient is apparently at his baseline. He has urinary incontinence. He has dementia. Objective Vitals Vital Signs Date Time Temp Pulse Resp B/P (MAP) Pulse Ox O2 Delivery O2 Flow Rate FiO2 03/28/17 06:00 82 03/28/17 05:55 97 Nasal Cannula 2.00 03/28/17 05:00 86 03/28/17 04:00 86 03/28/17 03:00 79 03/28/17 03:00 97 Nasal Cannula 2.00 03/28/17 03:00 97.8 83 18 157/71 (99) 97 03/28/17 02:00 79 03/28/17 01:00 72 03/28/17 00:00 80 03/27/17 23:45 98.6 90 18 178/75 (109) 96 03/27/17 23:45 96 Nasal Cannula 2.00 03/27/17 23:00 90 03/27/17 22:00 90 03/27/17 21:00 92 03/27/17 21:00 99 Nasal Cannula 2.00 03/27/17 21:00 97.9 91 18 161/68 (99) 99 03/27/17 20:00 92 03/27/17 19:00 82 03/27/17 17:15 98.0 87 16 157/64 (95) 100 03/27/17 17:15 87 03/27/17 17:00 82 20 157/68 (97) 96 Nasal Cannula 2 03/27/17 16:45 85 20 147/63 (91) 96 Nasal Cannula 2 03/27/17 16:30 94 20 142/52 (82) 96 Nasal Cannula 2 03/27/17 16:15 80 20 167/72 (103) 98 Nasal Cannula 2 03/27/17 16:10 85 18 179/74 (109) 97 Nasal Cannula 2 03/27/17 16:00 90 21 184/77 (112) 98 Nasal Cannula 2 03/27/17 15:52 87 22 187/79 (115) 100 Nasal Cannula 2 03/27/17 15:45 97.6 87 22 163/117 (132) 99 Nasal Cannula 2 03/27/17 12:00 38 03/27/17 12:00 97.9 32 22 170/68 (102) 96 03/27/17 10:00 37 I/O 03/27/17 03/27/17 03/27/17 03/28/17 03/28/17 03/28/17 07:00 15:00 23:00 07:00 15:00 23:00 Intake Total 1614 ml 50 ml 1230 ml Balance 1614 ml 50 ml 1230 ml Intake Oral 200 ml 480 ml IV Total 1414 ml 50 ml 750 ml # Voids 5 3 # Bowel Movements 1 0 Result Diagram: 03/28/17 0649 03/28/17 0649 Imaging Last Impressions Chest X-Ray 03/27/17 0000 Signed Impressions: Service Date/Time: Monday, March 27, 2017 16:03 - CONCLUSION: Satisfactory pacer placement. Mild fluid overload Jarad Thomas MD Head CT 03/25/17 1320 Signed Impressions: Service Date/Time: Saturday, March 25, 2017 15:38 - CONCLUSION: Negative for acute process. Donald Ramirez MD FACR Objective Remarks General: Obese elderly male in no acute distress. Sitting up in a chair. Chest wall: Bandage in place over surgical wound. Heart: Regular rate and rhythm. No murmur. Lungs: Clear to auscultation bilaterally. No wheezes, rales, or rhonchi. Breathing is nonlabored. Abdomen: Soft, nontender, nondistended. Extremities: Trace bilateral lower extremity edema. Psych: Alert, answers questions. Oriented only to person. Procedures 03/27/17 pacemaker placement Urinary Catheter: No Vascular Central Line Catheter: No A/P Problem List: (1) Heart block AV second degree ICD Code: I44.1 - Atrioventricular block, second degree Status: Acute (2) Diabetes mellitus ICD Code: E11.9 - Type 2 diabetes mellitus without complications (3) Elevated troponin ICD Code: R74.8 - Abnormal levels of other serum enzymes Status: Acute (4) Legally blind ICD Code: H54.8 - Legal blindness, as defined in [place] Status: Acute (5) Acute kidney injury ICD Code: N17.9 - Acute kidney failure, unspecified Status: Acute (6) Symptomatic bradycardia ICD Code: R00.1 - Bradycardia, unspecified Status: Acute (7) Peripheral vascular disease ICD Code: I73.9 - Peripheral vascular disease, unspecified (8) Hyponatremia ICD Code: E87.1 - Hypo-osmolality and hyponatremia (9) Hyperlipidemia ICD Code: E78.5 - Hyperlipidemia, unspecified (10) PVD (peripheral vascular disease) ICD Code: I73.9 - Peripheral vascular disease, unspecified (11) CHF (congestive heart failure) ICD Code: I50.9 - Heart failure, unspecified (12) Lethargy ICD Code: R53.83 - Other fatigue Assessment and Plan 1. Heart block, bradycardia: Status post pacemaker placement. Discussed with Dr. Santos. Patient was cleared for discharge by cardiology. He has reportedly been asymptomatic overnight. 2. Elevated troponin: Appreciate cardiology recommendations. 3. Dementia: Chronic, stable. 4. Dyslipidemia: Continue fenofibrate, simvastatin, niacin. 5. Hypertension: Continue hydralazine, Isordil. Restart HCTZ. 6. Diabetes mellitus: Continue Levemir, prandial Novolin R. Monitor Accu-Cheks and cover with sliding scale insulin. Continue pioglitazone. 7. Chronic kidney disease stage III: Creatinine improved, now near baseline. 8. Normocytic anemia: Monitor. 9. Hyponatremia: Resolved. 10. GI prophylaxis: Protonix. 11. DVT prophylaxis: SCDs, Lovenox. Discharge Planning Plan for discharge back to nursing facility today. Case management to assist with discharge planning. Problem Qualifiers (1) Diabetes mellitus: (2) CHF (congestive heart failure): Qualified Codes: I50.9 - Heart failure, unspecified Rachid Murillo MD Mar 28, 2017 09:26
[2017-03-28] MEDS ORDERED: LEVEMIR SQ (09:33)
[2017-03-28] MEDS ORDERED: HYDR-3799 PO (09:33)
[2017-03-28] MEDS ORDERED: ISOS10TA PO (09:33)
--- NOTE | 2017-03-28 09:33 | HHI.DCPOC ---
Discharge Care Plan Diagnosis: (1) Symptomatic bradycardia (2) Complete heart block (3) Hyponatremia (4) Acute kidney injury (5) Elevated troponin (6) Hyperlipidemia (7) Diabetes Goals to Promote Your Health * To prevent worsening of your condition and complications * To maintain your health at the optimal level Directions to Meet Your Goals Take your medications as prescribed Follow your dietary instruction Follow activity as directed Keep your appointments as scheduled Take your immunizations and boosters as scheduled If your symptoms worsen call your PCP, if no PCP go to Urgent Care Center or Emergency Room Smoking is Dangerous to Your Health. Avoid second hand smoke Call the 24-hour hour crisis hotline for domestic abuse at Rachid Murillo MD Mar 28, 2017 09:33
[2017-03-28] MEDS: POTASSIUM CHLORIDE 10 MEQ CAP PO SCH (09:34)
[2017-03-28] MEDS: MULTIVITAMINS/MINERALS THERAPEUTIC TAB PO SCH (09:34)
[2017-03-28] MEDS: PANTOPRAZOLE SODIUM 40 MG VIAL IV SCH (09:34)
[2017-03-28] MEDS: DOCUSATE SODIUM 50 MG/SENNA 8.6 MG TAB PO SCH (09:34)
[2017-03-28] MEDS: ASPIRIN EC 81 MG TABEC PO SCH (09:35)
[2017-03-28] MEDS: FENOFIBRATE 145 MG TAB PO SCH (09:35)
[2017-03-28] MEDS: SODIUM CHLORIDE 0.9% FLUSH 10 ML FLUSH IV FLUSH SCH (09:35)
[2017-03-28] MEDS: INSULIN DETEMIR 100 UNITS/ML VIAL SQ SCH (09:56)
--- NOTE | 2017-03-28 12:49 | PD.CARD.PN ---
Subjective Subjective Remarks No CP or SOB, feels well Objective Medications Active Medications Albuterol Sulfate (*ALBUTEROL NEB PERIprocedure ONLY) 2.5 mg STK-MED ONCE NEB Last administered on 03/27/17 15:48; Admin Dose 2.5 MG; Start 03/27/17 at 15:48 ; Stop 03/27/17 at 15:49; Status DC Cefazolin Sodium (Ancef Inj) 2,000 mg STK-MED ONCE .ROUTE Last administered on 14:07; Admin Dose 2,000 MG; Start 03/27/17 at 13:47; Stop 03/27/17 at 13:48; Status DC Cefazolin Sodium/ Dextrose 50 ml @ 100 mls/hr Q8H IV Last administered on 06:10; Admin Dose 100 MLS/HR; Start 03/27/17 at 22:00; Stop 03/28/17 at 14: 29 Enalaprilat (*VASOTEC INJ PERIprocedural Use ONLY) 1.25 mg STK-MED ONCE .ROUTE Last administered on 03/27/17 16:02; Admin Dose 1.25 MG; Start 03/27/17 at 16: 02; Stop 03/27/17 at 16:03; Status DC Fentanyl Citrate (fentaNYL INJ) 100 mcg STK-MED ONCE .ROUTE; Start 03/27/17 at 13:38; Stop 03/27/17 at 13:39; Status DC Ketamine HCl (Ketalar Inj) 500 mg STK-MED ONCE .ROUTE; Start 03/27/17 at 13:38; Stop 03/27/17 at 13:39; Status DC Labetalol HCl (*TRANDATE INJ PERIprocedural Use ONLY) 100 mg STK-MED ONCE .ROUTE Last administered on 03/27/17 16:15; Admin Dose 5 MG; Start 03/27/17 at 16:15; Stop 03/27/17 at 16:16; Status DC Lidocaine HCl (Xylocaine 2% Inj) 50 ml STK-MED ONCE .ROUTE; Start 03/27/17 at 13 :51; Stop 03/27/17 at 13:52; Status DC Midazolam HCl (Versed Inj) 2 mg STK-MED ONCE .ROUTE; Start 03/27/17 at 13:38; Stop 03/27/17 at 13:39; Status DC Miscellaneous Information ALL NURSING DEPARTME... UNSCH PRN .XX; Start at 16:00; Stop 03/28/17 at 15:59 Vancomycin HCl (Vancomycin Inj) 500 mg STK-MED ONCE .ROUTE Last administered on 03/27/17 13:46; Admin Dose 500 MG; Start 03/27/17 at 13:46; Stop 03/27/17 at 13 :47; Status DC Vancomycin HCl (Vancomycin Inj) 1,000 mg STK-MED ONCE .ROUTE Last administered on 03/27/17 14:06; Admin Dose 1,000 MG; Start 03/27/17 at 13:47; Stop 03/27/17 at 13:48; Status DC Vancomycin HCl 1000 mg/Sodium Chloride 250 ml @ 250 mls/hr ONCE ONCE IV Last administered on 03/28/17 02:51; Admin Dose 250 MLS/HR; Start 03/28/17 at 02:00 ; Stop 03/28/17 at 02:59; Status DC Vital Signs / I&O Vital Signs Date Time Temp Pulse Resp B/P (MAP) Pulse Ox O2 Delivery O2 Flow Rate FiO2 03/28/17 10:00 82 03/28/17 09:19 97 Nasal Cannula 2.00 03/28/17 09:00 84 03/28/17 08:50 97.9 84 20 176/71 (106) 96 03/28/17 08:00 96 Nasal Cannula 2.00 03/28/17 08:00 78 03/28/17 07:00 82 03/28/17 06:00 82 03/28/17 05:55 97 Nasal Cannula 2.00 03/28/17 05:00 86 03/28/17 04:00 86 03/28/17 03:00 79 03/28/17 03:00 97 Nasal Cannula 2.00 03/28/17 03:00 97.8 83 18 157/71 (99) 97 03/28/17 02:00 79 03/28/17 01:00 72 03/28/17 00:00 80 03/27/17 23:45 98.6 90 18 178/75 (109) 96 03/27/17 23:45 96 Nasal Cannula 2.00 03/27/17 23:00 90 03/27/17 22:00 90 03/27/17 21:00 92 03/27/17 21:00 99 Nasal Cannula 2.00 03/27/17 21:00 97.9 91 18 161/68 (99) 99 03/27/17 20:00 92 03/27/17 19:00 82 03/27/17 17:15 98.0 87 16 157/64 (95) 100 03/27/17 17:15 87 03/27/17 17:00 82 20 157/68 (97) 96 Nasal Cannula 2 03/27/17 16:45 85 20 147/63 (91) 96 Nasal Cannula 2 03/27/17 16:30 94 20 142/52 (82) 96 Nasal Cannula 2 03/27/17 16:15 80 20 167/72 (103) 98 Nasal Cannula 2 03/27/17 16:10 85 18 179/74 (109) 97 Nasal Cannula 2 03/27/17 16:00 90 21 184/77 (112) 98 Nasal Cannula 2 03/27/17 15:52 87 22 187/79 (115) 100 Nasal Cannula 2 03/27/17 15:45 97.6 87 22 163/117 (132) 99 Nasal Cannula 2 I/O 03/27/17 03/27/17 03/27/17 03/28/17 03/28/17 03/28/17 07:00 15:00 23:00 07:00 15:00 23:00 Intake Total 1614 ml 50 ml 1230 ml 100 ml Balance 1614 ml 50 ml 1230 ml 100 ml Intake Oral 200 ml 480 ml IV Total 1414 ml 50 ml 750 ml 100 ml # Voids 5 3 # Bowel Movements 1 0 Physical Exam GENERAL: In NAD SKIN: Warm and dry. HEAD: Normocephalic. EYES: No scleral icterus. No injection or drainage. NECK: Supple, trachea midline. No JVD or lymphadenopathy. CARDIOVASCULAR: Reg, without murmurs, gallops, or rubs. RESPIRATORY: Breath sounds equal bilaterally. No accessory muscle use. GASTROINTESTINAL: Abdomen soft, non-tender, nondistended. MUSCULOSKELETAL: No cyanosis, mild edema. Pacemaker wound stable Laboratory Laboratory Tests Test 03/28/17 06:49 White Blood Count 5.6 TH/MM3 Red Blood Count 3.62 MIL/MM3 Hemoglobin 11.1 GM/DL Hematocrit 32.5 % Mean Corpuscular Volume 89.8 FL Mean Corpuscular Hemoglobin 30.7 PG Mean Corpuscular Hemoglobin Concent 34.2 % Red Cell Distribution Width 14.0 % Platelet Count 173 TH/MM3 Mean Platelet Volume 9.4 FL Neutrophils (%) (Auto) 73.8 % Lymphocytes (%) (Auto) 13.4 % Monocytes (%) (Auto) 11.8 % Eosinophils (%) (Auto) 0.7 % Basophils (%) (Auto) 0.3 % Neutrophils # (Auto) 4.1 TH/MM3 Lymphocytes # (Auto) 0.8 TH/MM3 Monocytes # (Auto) 0.7 TH/MM3 Eosinophils # (Auto) 0.0 TH/MM3 Basophils # (Auto) 0.0 TH/MM3 CBC Comment DIFF FINAL Differential Comment Blood Urea Nitrogen 23 MG/DL Creatinine 1.16 MG/DL Random Glucose 183 MG/DL Calcium Level 7.8 MG/DL Phosphorus Level 2.1 MG/DL Magnesium Level 2.3 MG/DL Sodium Level 136 MEQ/L Potassium Level 3.7 MEQ/L Chloride Level 104 MEQ/L Carbon Dioxide Level 24.4 MEQ/L Anion Gap 8 MEQ/L Estimat Glomerular Filtration Rate 62 ML/MIN Assessment and Plan Problem List: (1) Complete heart block ICD Codes: I44.2 - Atrioventricular block, complete (2) Symptomatic bradycardia ICD Codes: R00.1 - Bradycardia, unspecified (3) Diabetes ICD Codes: E11.9 - Type 2 diabetes mellitus without complications (4) Hyperlipidemia ICD Codes: E78.5 - Hyperlipidemia, unspecified Assessment and Plan Normal pacemaker function. Wound healing well. OK to discharge from cardiac standpoint. Will schedule cardiology followup. Cj Santos MD Mar 28, 2017 12:49
--- NOTE | 2017-03-28 15:27 | HHI.DS ---
Discharge Summary Admission Date Mar 25, 2017 at 15:07 Discharge Date: Mar 28, 2017 Admitting Diagnosis symptomatic bradycardia, elevated troponin, acute kidney injury, leg (1) Heart block AV second degree ICD Code: I44.1 - Atrioventricular block, second degree Diagnosis: Principal Status: Acute (2) Diabetes mellitus ICD Code: E11.9 - Type 2 diabetes mellitus without complications Diagnosis: Principal (3) Elevated troponin ICD Code: R74.8 - Abnormal levels of other serum enzymes Diagnosis: Principal Status: Acute (4) Legally blind ICD Code: H54.8 - Legal blindness, as defined in [place] Diagnosis: Principal Status: Acute (5) Acute kidney injury ICD Code: N17.9 - Acute kidney failure, unspecified Diagnosis: Principal Status: Acute (6) Symptomatic bradycardia ICD Code: R00.1 - Bradycardia, unspecified Diagnosis: Principal Status: Acute (7) Peripheral vascular disease ICD Code: I73.9 - Peripheral vascular disease, unspecified Diagnosis: Principal (8) Hyponatremia ICD Code: E87.1 - Hypo-osmolality and hyponatremia Diagnosis: Secondary (9) Hyperlipidemia ICD Code: E78.5 - Hyperlipidemia, unspecified Diagnosis: Secondary (10) PVD (peripheral vascular disease) ICD Code: I73.9 - Peripheral vascular disease, unspecified Diagnosis: Secondary (11) CHF (congestive heart failure) ICD Code: I50.9 - Heart failure, unspecified Diagnosis: Secondary (12) Lethargy ICD Code: R53.83 - Other fatigue Diagnosis: Principal Procedures 03/27/17 pacemaker placement Brief History - From Admission This is a 71-year-old male. Date of admission 03/25/2017. Asked medical history includes legal blindness, diabetes with peripheral neuropathy, chronic kidney disease stage III A, coronary artery disease, congestive heart failure unknown etiology, peripheral vascular disease, dyslipidemia, osteoporosis, degenerative disc disease constipation elevated BMI greater than 40 and [place]. Patient presents to [facility] emergency department today after being seen as nursing facility with low heart rate and confused. Patient was a DNR and initially patient was not transvenously paced due to hypertension/ well perfused. Patient received 0.5 mill grams atropine in route without improvement in heart rate. Workup included EKG which revealed high degree AV block type II Mobitz and higher. EKG revealed rates around 40. Right bundle-branch block. Left anterior fascicular block. LVH. Troponin was 0.13. Potassium 3.9. Magnesium 2.2. Normocytic anemia.. Patient was evaluated by Dr. Santos who did not recommend pacemaker this time. Patient would benefit the ICU for observation as his systolic blood pressures currently in the 180s to 200s and he is mentating appropriately at this time. He will evaluate for pacemaker heart block persists. Discussed with Shaila Hughes, healthcare proxy is amenable to pacemaker placement if indicated. CBC/BMP: 03/28/17 0649 03/28/17 0649 Significant Findings Laboratory Tests Test 03/25/17 15:25 03/25/17 18:20 03/25/17 21:07 03/26/17 03:30 Troponin I 0.13 NG/ML (0.02-0.05) 0.13 NG/ML (0.02-0.05) Red Blood Count 4.14 MIL/MM3 (4.50-5.90) Hemoglobin 12.9 GM/DL (13.0-17.0) Hematocrit 36.9 % (39.0-51.0) Neutrophils (%) (Auto) 73.2 % (16.0-70.0) Monocytes (%) (Auto) 13.2 % (0.0-8.0) Lymphocytes # (Auto) 0.8 TH/MM3 (1.0-4.8) Blood Urea Nitrogen 20 MG/DL (7-18) Random Glucose 114 MG/DL (74-106) Albumin 3.1 GM/DL (3.4-5.0) Calcium Level 8.4 MG/DL (8.5-10.1) Sodium Level 135 MEQ/L (136-145) Estimat Glomerular Filtration Rate 63 ML/MIN (>89) Test 03/27/17 06:18 03/28/17 06:49 Red Blood Count 3.98 MIL/MM3 (4.50-5.90) 3.62 MIL/MM3 (4.50-5.90) Hemoglobin 12.3 GM/DL (13.0-17.0) 11.1 GM/DL (13.0-17.0) Hematocrit 36.1 % (39.0-51.0) 32.5 % (39.0-51.0) Prothrombin Time 11.8 SEC (9.8-11.6) Blood Urea Nitrogen 30 MG/DL (7-18) 23 MG/DL (7-18) Creatinine 1.40 MG/DL (0.60-1.30) Random Glucose 219 MG/DL (74-106) 183 MG/DL (74-106) Calcium Level 7.9 MG/DL (8.5-10.1) 7.8 MG/DL (8.5-10.1) Sodium Level 135 MEQ/L (136-145) Estimat Glomerular Filtration Rate 50 ML/MIN (>89) 62 ML/MIN (>89) Neutrophils (%) (Auto) 73.8 % (16.0-70.0) Monocytes (%) (Auto) 11.8 % (0.0-8.0) Lymphocytes # (Auto) 0.8 TH/MM3 (1.0-4.8) Phosphorus Level 2.1 MG/DL (2.5-4.9) Imaging Last Impressions Chest X-Ray 03/27/17 0000 Signed Impressions: Service Date/Time: Monday, March 27, 2017 16:03 - CONCLUSION: Satisfactory pacer placement. Mild fluid overload Jarad Thomas MD Head CT 03/25/17 1320 Signed Impressions: Service Date/Time: Saturday, March 25, 2017 15:38 - CONCLUSION: Negative for acute process. Donald Ramirez MD FACR PE at Discharge General: Obese elderly male in no acute distress. Sitting up in a chair. Chest wall: Bandage in place over surgical wound. Heart: Regular rate and rhythm. No murmur. Lungs: Clear to auscultation bilaterally. No wheezes, rales, or rhonchi. Breathing is nonlabored. Abdomen: Soft, nontender, nondistended. Extremities: Trace bilateral lower extremity edema. Psych: Alert, answers questions. Oriented only to person. Hospital Course The patient was admitted for bradycardia and confusion. He was admitted to the critical care service in the ICU. Cardiology was consulted. He was continued on cardiac telemetry monitoring. Patient was noted to be in heart block. Pacemaker was placed on 03/27/17. Patient's heart rate improved and remained stable in the 80s. He was cleared for discharge by cardiology. He was felt to be at his baseline mental status. His sister, who is his power of insurance defense attorney, was contacted. The patient was felt to be stable for [facility]. Pt Condition on Discharge: Stable Discharge Disposition: Discharge to SNF Discharge Time: > 30 minutes Discharge Instructions DIET: Follow Instructions for: Heart Healthy Diet, Diabetic Diet Activities you can perform: Regular-No Restrictions Other Activity Instructions: With assistance Follow up Referrals: Cardiology - 10 Days with Cj Santos MD PCP Follow-up - 2 Weeks New Medications: Hydralazine HCl (Hydralazine HCl) 25 Mg Tablet 25 MG PO Q8HR for Blood Pressure Management, #90 TAB 0 Refills Insulin Detemir Inj (Levemir Inj) 1,000 unit/ 10 ML Vial 10 UNITS SQ Q12HR for Blood Sugar Management, #30 INJECTION 0 Refills Do not mix with any other Insulin. Isosorbide Dinitrate (Isosorbide Dinitrate) 10 Mg Tab 10 MG PO Q8HR for Heart, #90 TAB 0 Refills Continued Medications: Artificial Tear Opth Ointment (Refresh Lacri-Lube Opth Ointment) 1 Oint 1 APPLIC EACH EYE HS Artificial Tear Solution Opth Drops (Natural Balance Tears Opth Drops) 0.1-0.3% Soln 1 DROP EACH EYE BID Aspirin DR (Aspirin Adult Low Strength) 81 Mg Tabdr 81 MG PO DAILY, TAB Fenofibrate (Tricor) 145 Mg Tab 145 MG PO DAILY for Cholesterol Management, #30 TAB 0 Refills Take with food. Gabapentin (Neurontin) 600 Mg Tab 600 MG PO BID for Pain Management, #60 TAB 0 Refills Gabapentin (Neurontin) 300 Mg Cap 300 MG PO DAILY, #60 CAP 0 Refills Hydrochlorothiazide (Hydrochlorothiazide) 25 Mg Tab 25 MG PO DAILY, #30 TAB 0 Refills Insulin Human Regular Inj (Novolin R Inj) 1,000 Unit/10 Ml Vial 6 UNITS SQ TIDAC for Blood Sugar Management, #1 INJECTION 0 Refills Give in addition to sliding scale-Hold if accucheck less than 100 Insulin Human Regular Inj (Novolin R Inj) 1,000 Unit/10 Ml Vial 0 SQ TIDAC for Blood Sugar Management, #10 ML 0 Refills Sliding Scale: 70-150=0 units, 151-200=5 units, 201-250=10 units, 251-300=15 units, 301-350=20 units, 351-400=25 units, >400=call Meloxicam (Mobic) 15 Mg Tab 15 MG PO DAILY for Pain Management, TAB 0 Refills Metolazone (Metolazone) 5 Mg Tab 5 MG PO MoTh, TAB 0 Refills Take 1 tablet (5mg) daily on Saturday and Multivit with Calcium,Iron,Min (Therapeutic M) 1 Each Tablet 1 TAB PO DAILY for Nutritional Supplement Niacin ER (Slo-Niacin) 500 Mg Tab 500 MG PO HS for Cholesterol Management, #60 TAB 0 Refills Pioglitazone (Actos) 45 Mg Tab 45 MG PO DAILY for Blood Sugar Management, #30 TAB 0 Refills Potassium Chloride ER (Potassium Chloride ER) 10 Meq Cap 10 MEQ PO DAILY for Electrolyte Replacement, #30 CAP 0 Refills Sertraline (Zoloft) 50 Mg Tab 50 MG PO DAILY for Depression Control, #30 TAB 0 Refills Simvastatin (Zocor) 40 Mg Tab 40 MG PO HS for Cholesterol Management, #30 TAB 0 Refills Discontinued Medications: Insulin Detemir Inj (Levemir Inj) 1,000 unit/ 10 ML Vial 70 UNITS SQ BID for Blood Sugar Management, VIAL 0 Refills Do not mix with any other Insulin. Rachid Murillo MD Mar 28, 2017 15:27
== END 2017-03-28 17:45 | DRG 243 ==
LOC: NEPE 12:21 → NEDA 15:07 → HIME 17:50 → HCIN 03-27 17:11
PROVIDERS: ADMIT Family Medicine; ATTEND Family Medicine
PROC: 02H63JZ Insertion of Pacemaker Lead into Right Atrium, Percutaneous Approach (ICD-10-PCS; 2017-03-27)
PROC: 02HK3JZ Insertion of Pacemaker Lead into Right Ventricle, Percutaneous Approach (ICD-10-PCS; 2017-03-27)
PROC: 0JH606Z Insertion of Pacemaker, Dual Chamber into Chest Subcutaneous Tissue and Fascia, Open Approach (ICD-10-PCS; principal; 2017-03-27 13:30)
DX: I44.2 Atrioventricular block, complete (principal); N17.9 Acute kidney failure, unspecified; E11.22 Type 2 diabetes mellitus with diabetic chronic kidney disease; E11.51 Type 2 diabetes mellitus with diabetic peripheral angiopathy without gangrene; I13.0 Hypertensive heart and chronic kidney disease with heart failure and stage 1 through stage 4 chronic kidney disease, or unspecified chronic kidney disease; I50.9 Heart failure, unspecified; E87.1 Hypo-osmolality and hyponatremia; I10 Essential (primary) hypertension; H54.8 Legal blindness, as defined in USA; Z66 Do not resuscitate; E78.5 Hyperlipidemia, unspecified; I25.10 Atherosclerotic heart disease of native coronary artery without angina pectoris; K59.00 Constipation, unspecified; N18.3 Chronic kidney disease, stage 3 (moderate); D64.9 Anemia, unspecified; F32.9 Major depressive disorder, single episode, unspecified; M81.0 Age-related osteoporosis without current pathological fracture; E66.9 Obesity, unspecified; Z68.41 Body mass index [BMI] 40.0-44.9, adult; Z79.4 Long term (current) use of insulin; Z79.82 Long term (current) use of aspirin
CPT/HCPCS: 33208; 36600; 70450; 71010; 76937; 80048; 80053; 82550; 82552; 82805; 82948; 83605; 83690; 83735; 84100; 84484; 85025; 85027; 85610; 85730; 87641; 93005; 93306; 94640; 94664; C1785; C1898; C9113; J0360; J0690; J2250; J3010; J3370; J7030; J7050; J7613